=== PATIENT | male | born 1935 | race Caucasian/White ===

== ENCOUNTER 2018-02-01 09:05 | Inpatient (IN) | payer MEDICARE, OTHER ==
[2018-02-01] MEDS ORDERED: methylPREDNISolone Sodium Succinate 125 MG/2 ML SDV IVPUSH ONE (10:06)
[2018-02-01] MEDS ORDERED: Sodium Chloride 0.9% 1,000 ML IV ONE (10:06)
[2018-02-01] MEDS ORDERED: Albuterol/Ipratropium 3.0-0.5 MG/3 ML Neb Soln NEB ONE (10:06)
[2018-02-01] MEDS ORDERED: Diltiazem 25 MG/5 ML SDV IVPUSH ONE (10:07)
[2018-02-01] MEDS: Sodium Chloride 0.9% 10 ML Syringe FLUSH PRN ×2 (10:12→22:06)
[2018-02-01 10:25] LABS: CHLORIDE,CL 104 mmol/L (101-111); SODIUM,NA 137 mmol/L (135-145)
[2018-02-01] MEDS ORDERED: Levofloxacin/Dextrose 5%-Water 750 MG in Premix Bag 1 BAG IV ONE (11:48)
[2018-02-01] MEDS ORDERED: Albuterol 0.083% 2.5 MG/3 ML Neb Soln NEB PRN (13:32)
[2018-02-01] MEDS ORDERED: Acetaminophen 325 MG Tab PO PRN (13:35)
[2018-02-01] MEDS ORDERED: oxyCODONE 5 MG Tab PO PRN (13:35)
[2018-02-01] MEDS ORDERED: Docusate Sodium 100 MG Cap PO PRN (13:35)
[2018-02-01] MEDS ORDERED: Zolpidem 5 MG Tab PO PRN (13:35)
[2018-02-01] MEDS ORDERED: Ondansetron 4 MG Tab.DIS PO PRN (13:35)
--- NOTE | 2018-02-01 14:21 | PCM.HP ---
H&P History of Present Illness - General Date of Service: 02/01/18 Admit Problem/Dx: Admission Diagnosis/Problem Admission Diagnosis/Problem Pneumonia Source of Information: Patient, Provider - History of Present Illness Initial Comments - Free Text/Narative: The patient is an 82-year-old gentleman with a history of hypertension, diabetes , COPD. He has a history of hypothyroidism and recently TSH level was low. The patient's was recently hospitalized with pneumonia. He came into the emergency room with complains of about 1 week of subjective fever, episodes of confusion, change in voice. He also noticed increasing shortness of breath and wheezing. He reports no chest pain, no abdominal pain. When he arrived to the emergency room he was noted to have rapid atrial fibrillation. This returned to normal sinus rhythm on its own within minutes. - Related Data Allergies/Adverse Reactions: Allergies Allergy/AdvReac Type Severity Reaction Status Date / Time No Known Allergies Allergy Verified 02/01/18 11:54 Past Medical History Cardiovascular History: Reports: Hypertension Respiratory History: Reports: SOB Psychiatric History: Reports: None Endocrine/Metabolic History: Reports: Diabetes, Type II, Hypothyroidism Hematologic History: Reports: B12 Deficiency - Infectious Disease History Infectious Disease History: Reports: Mumps - Past Surgical History Head Surgeries/Procedures: Reports: None HEENT Surgical History: Reports: None Respiratory Surgical History: Reports: None GI Surgical History: Reports: Hernia Repair/Other Social & Family History - Tobacco Use Smoking Status *Q: Former Smoker Used Tobacco, but Quit: Yes Month/Year Tobacco Last Used: 1964 - Caffeine Use Caffeine Use: Reports: Coffee, Soda, Tea - Recreational Drug Use Recreational Drug Use: No H&P Review of Systems - Review of Systems: Review Of Systems: See Below General: Reports: Fever (Subjective), Weakness Pulmonary: Reports: Shortness of Breath, Wheezing Cardiovascular: Denies: Chest Pain, Palpitations, Lightheadedness Gastrointestinal: Denies: Abdominal Pain Genitourinary: Denies: Dysuria Neurological: Reports: Confusion Exam - Exam Exam: See Below - Vital Signs Vital Signs: Last Vital Signs Temp 36.8 C 02/01/18 12:47 Pulse 78 02/01/18 12:47 Resp 17 02/01/18 12:47 BP 119/62 02/01/18 12:47 Pulse Ox 94 L 02/01/18 12:47 Weight: 82.826 kg - Exam Quality Assessment: Supplemental Oxygen General: Alert, Oriented Neck: Supple Lungs: Normal Respiratory Effort, Rhonchi, Wheezing Cardiovascular: Regular Rate, Regular Rhythm GI/Abdominal Exam: Normal Bowel Sounds, Soft, Non-Tender Extremities: No Pedal Edema - Patient Data Lab Results Last 24 hrs: Laboratory Results - last 24 hr 02/01/18 02/01/18 02/01/18 Range/Units 09:53 09:53 09:53 WBC 9.8 (5.0-10.0) 10^3/uL RBC 4.16 L (4.6-6.2) 10^6/uL Hgb 12.5 L (14.0-18.0) g/dL Hct 39.0 L (40.0-54.0) % MCV 93.8 (80-100) fL MCH 30.0 (27.0-34.0) pg MCHC 32.1 L (33.0-35.0) g/dL Plt Count 169 (150-450) 10^3/uL Neut % (Auto) 71.8 (42.2-75.2) % Lymph % (Auto) 13.1 L (20.5-50.1) % [place] % (Auto) 11.6 H (2-8) % Eos % (Auto) 3.2 H (1.0-3.0) % Baso % (Auto) 0.3 (0.0-1.0) % PT 9.4 (9.0-12.0) SEC INR 0.9 (0.9-1.2) APTT 28.6 (22.0-34.0) SEC Sodium 137 (135-145) mmol/L Potassium 3.7 (3.6-5.0) mmol/L Chloride 104 (101-111) mmol/L Carbon Dioxide 24.0 (21.0-31.0) mmol/L Anion Gap 12.7 BUN 13 (7-18) mg/dL Creatinine 1.0 (0.6-1.3) mg/dL Est Cr Clr Drug Dosing 59.82 mL/min Estimated GFR (MDRD) > 60 BUN/Creatinine Ratio 13.00 Glucose 141 H (74-105) mg/dL POC Glucose (83-110) mg/dl Lactic Acid (0.5-2.2) mmol/L Calcium 9.2 (8.4-10.2) mg/dl Magnesium 1.7 L (1.8-2.5) mg/dL Total Bilirubin 0.9 (0.2-1.0) mg/dL AST 17 (10-42) IU/L ALT 12 (10-60) IU/L Alkaline Phosphatase 97 (42-121) IU/L Troponin I 0.02 (0.00-0.02) ng/ml B-Natriuretic Peptide 38 (0-100) pg/ml Total Protein 7.3 (6.7-8.2) g/dl Albumin 4.0 (3.2-5.5) g/dl Globulin 3.3 Albumin/Globulin Ratio 1.21 TSH, Ultra Sensitive (0.45-5.33) uIu/mL Urine Color (YELLOW) Urine Appearance (CLEAR) Urine pH (5.0-9.0) Ur Specific [place] (1.005-1.030) Urine Protein (NEGATIVE) Urine Glucose (UA) (NEGATIVE) Urine Ketones (NEGATIVE) Urine Occult Blood (NEGATIVE) Urine Nitrite (NEGATIVE) Urine Bilirubin (NEGATIVE) Urine Urobilinogen (0.2-1.0) mg/dL Ur Leukocyte Esterase (NEGATIVE) Urine RBC /HPF Urine WBC (0-5/HPF) /HPF Ur Epithelial Cells /HPF Urine Bacteria (0-FEW/HPF) /HPF Urine Mucus /LPF 02/01/18 02/01/18 02/01/18 Range/Units 09:53 09:53 10:04 WBC (5.0-10.0) 10^3/uL RBC (4.6-6.2) 10^6/uL Hgb (14.0-18.0) g/dL Hct (40.0-54.0) % MCV (80-100) fL MCH (27.0-34.0) pg MCHC (33.0-35.0) g/dL Plt Count (150-450) 10^3/uL Neut % (Auto) (42.2-75.2) % Lymph % (Auto) (20.5-50.1) % [place] % (Auto) (2-8) % Eos % (Auto) (1.0-3.0) % Baso % (Auto) (0.0-1.0) % PT (9.0-12.0) SEC INR (0.9-1.2) APTT (22.0-34.0) SEC Sodium (135-145) mmol/L Potassium (3.6-5.0) mmol/L Chloride (101-111) mmol/L Carbon Dioxide (21.0-31.0) mmol/L Anion Gap BUN (7-18) mg/dL Creatinine (0.6-1.3) mg/dL Est Cr Clr Drug Dosing mL/min Estimated GFR (MDRD) BUN/Creatinine Ratio Glucose (74-105) mg/dL POC Glucose 129 H (83-110) mg/dl Lactic Acid 1.1 (0.5-2.2) mmol/L Calcium (8.4-10.2) mg/dl Magnesium (1.8-2.5) mg/dL Total Bilirubin (0.2-1.0) mg/dL AST (10-42) IU/L ALT (10-60) IU/L Alkaline Phosphatase (42-121) IU/L Troponin I (0.00-0.02) ng/ml B-Natriuretic Peptide (0-100) pg/ml Total Protein (6.7-8.2) g/dl Albumin (3.2-5.5) g/dl Globulin Albumin/Globulin Ratio TSH, Ultra Sensitive 0.12 L (0.45-5.33) uIu/mL Urine Color (YELLOW) Urine Appearance (CLEAR) Urine pH (5.0-9.0) Ur Specific [place] (1.005-1.030) Urine Protein (NEGATIVE) Urine Glucose (UA) (NEGATIVE) Urine Ketones (NEGATIVE) Urine Occult Blood (NEGATIVE) Urine Nitrite (NEGATIVE) Urine Bilirubin (NEGATIVE) Urine Urobilinogen (0.2-1.0) mg/dL Ur Leukocyte Esterase (NEGATIVE) Urine RBC /HPF Urine WBC (0-5/HPF) /HPF Ur Epithelial Cells /HPF Urine Bacteria (0-FEW/HPF) /HPF Urine Mucus /LPF 02/01/18 Range/Units 10:21 WBC (5.0-10.0) 10^3/uL RBC (4.6-6.2) 10^6/uL Hgb (14.0-18.0) g/dL Hct (40.0-54.0) % MCV (80-100) fL MCH (27.0-34.0) pg MCHC (33.0-35.0) g/dL Plt Count (150-450) 10^3/uL Neut % (Auto) (42.2-75.2) % Lymph % (Auto) (20.5-50.1) % [place] % (Auto) (2-8) % Eos % (Auto) (1.0-3.0) % Baso % (Auto) (0.0-1.0) % PT (9.0-12.0) SEC INR (0.9-1.2) APTT (22.0-34.0) SEC Sodium (135-145) mmol/L Potassium (3.6-5.0) mmol/L Chloride (101-111) mmol/L Carbon Dioxide (21.0-31.0) mmol/L Anion Gap BUN (7-18) mg/dL Creatinine (0.6-1.3) mg/dL Est Cr Clr Drug Dosing mL/min Estimated GFR (MDRD) BUN/Creatinine Ratio Glucose (74-105) mg/dL POC Glucose (83-110) mg/dl Lactic Acid (0.5-2.2) mmol/L Calcium (8.4-10.2) mg/dl Magnesium (1.8-2.5) mg/dL Total Bilirubin (0.2-1.0) mg/dL AST (10-42) IU/L ALT (10-60) IU/L Alkaline Phosphatase (42-121) IU/L Troponin I (0.00-0.02) ng/ml B-Natriuretic Peptide (0-100) pg/ml Total Protein (6.7-8.2) g/dl Albumin (3.2-5.5) g/dl Globulin Albumin/Globulin Ratio TSH, Ultra Sensitive (0.45-5.33) uIu/mL Urine Color Yellow (YELLOW) Urine Appearance Slightly cloudy (CLEAR) Urine pH 7.0 (5.0-9.0) Ur Specific [place] 1.015 (1.005-1.030) Urine Protein Negative (NEGATIVE) Urine Glucose (UA) Negative (NEGATIVE) Urine Ketones Negative (NEGATIVE) Urine Occult Blood Negative (NEGATIVE) Urine Nitrite Negative (NEGATIVE) Urine Bilirubin Negative (NEGATIVE) Urine Urobilinogen 1.0 (0.2-1.0) mg/dL Ur Leukocyte Esterase Negative (NEGATIVE) Urine RBC 0-5 /HPF Urine WBC 0-5 (0-5/HPF) /HPF Ur Epithelial Cells Rare /HPF Urine Bacteria Rare (0-FEW/HPF) /HPF Urine Mucus Rare /LPF Result Diagrams: 02/01/18 09:53 02/01/18 09:53 Carlos Results Last 24 hrs: Microbiology 02/01/18 09:58 Anaerobic Blood Culture - Final Blood - Venous - Lab Draw Imaging Impressions Last 24 hrs: ct chest FINDINGS: Lungs: There are mild interstitial changes in the lungs. There is bronchial wall thickening. There are small spotty areas tree-in-bud pattern infiltrate. There is pulmonary hyperexpansion. Pleural space: Unremarkable. No pneumothorax. No significant effusion. Heart: Unremarkable. No cardiomegaly. No significant pericardial effusion. Mediastinum: There is a moderate sized hiatal hernia. Bones/joints: Unremarkable. No acute fracture. No dislocation. Soft tissues: Unremarkable. Vasculature: Unremarkable. No thoracic aortic aneurysm. Lymph nodes: Unremarkable. No enlarged lymph nodes. Gallbladder and bile ducts: There are small stones or sludge in the gallbladder. No inflammatory changes to the gallbladder. Chest x-ray per my reading shows bilateral atelectasis/infiltrate. More pronounced on the left side - Problem List (1) Atrial fibrillation with rapid ventricular response SNOMED Code(s): 591935229930982 ICD Code: I48.91 - UNSPECIFIED ATRIAL FIBRILLATION Status: Acute Current Visit: Yes (2) COPD with acute exacerbation SNOMED Code(s): 637677680 ICD Code: J44.1 - CHRONIC OBSTRUCTIVE PULMONARY DISEASE W (ACUTE) EXACERBATION Status: Acute Current Visit: Yes (3) Pneumonia SNOMED Code(s): 919329405 ICD Code: J18.9 - PNEUMONIA, UNSPECIFIED ORGANISM Status: Acute Current Visit: Yes Problem List Initiated/Reviewed/Updated: Yes Orders Last 24hrs: Active Orders 24 hr Category Date Time Status Patient Status [ADT] Routine ADT 02/01/18 13:35 Active Blood Glucose Check, Bedside [RC] ONETIME Care 02/01/18 09:48 Active EKG 12 Lead [EKG Documentation Completion] [RC] STAT Care 02/01/18 09:34 Active EKG 12 Lead [EKG Documentation Completion] [RC] STAT Care 02/01/18 11:01 Active Glucose [Blood Glucose Check, Bedside] [RC] TIDAC Care 02/01/18 13:59 Active Oxygen Therapy [RC] PRN Care 02/01/18 13:35 Active Peripheral IV Care [RC] . DIRECTED Care 02/01/18 09:36 Active RT Aerosol Therapy [RC] ASDIRECTED Care 02/01/18 10:07 Active RT Aerosol Therapy [RC] ASDIRECTED Care 02/01/18 13:32 Active Telemetry Monitoring [Cardiac Monitoring] [RC] . Care 02/01/18 13:33 Active DIRECTED Up With Assistance [RC] ASDIRECTED Care 02/01/18 13:35 Active VTE/DVT Education [RC] PER UNIT ROUTINE Care 02/01/18 13:35 Active Vital Signs [RC] Q4H Care 02/01/18 13:35 Active Regular Diet [DIET] Diet 02/01/18 Dinner Active BASIC METABOLIC PANEL,BMP [CHEM] AM Lab 02/02/18 05:15 Ordered CBC WITH AUTO DIFF [HEME] AM Lab 02/02/18 05:15 Ordered CULTURE BLOOD [BC] Stat Lab 02/01/18 09:53 Received CULTURE BLOOD [BC] Stat Lab 02/01/18 09:58 Results INFLUENZA A+B AG SCREEN [RM] Routine Lab 02/01/18 13:30 Ordered UA W/MICROSCOPIC [URIN] Stat Lab 02/01/18 10:21 Ordered Acetaminophen [Tylenol] Med 02/01/18 13:35 Active 650 mg PO Q4H PRN Albuterol [Proventil Neb Soln] Med 02/01/18 13:32 Active 2.5 mg NEB Q4HRRT PRN Albuterol/Ipratropium [DuoNeb 3.0-0.5 MG/3 ML] Med 02/01/18 15:00 Active 3 ml NEB Q8HRRT Aspirin Med 02/02/18 08:00 Active 81 mg PO WITHBREAKFAST Budesonide [Pulmicort] Med 02/01/18 18:00 Active 0.5 mg NEB BIDRT Docusate Sodium [Colace] Med 02/01/18 13:35 Active 100 mg PO BID PRN Heparin Sodium Med 02/01/18 14:00 Active 5,000 units SUBCUT Q8HR Hydrochlorothiazide Med 02/02/18 09:00 Active 12.5 mg PO DAILY Insulin Aspart [NovoLOG] Med 02/01/18 17:00 Active See Protocol SUBCUT TIDAC Levofloxacin/Dextrose 5%-Water [Levaquin in D5W 750 MG/ Med 02/02/18 11:00 Active 150 ML] 750 mg Premix Bag 1 bag IV Q24H Levothyroxine [Synthroid] Med 02/02/18 06:00 Active 50 mcg PO ACBREAKFAST Ondansetron [Zofran ODT] Med 02/01/18 13:35 Active 4 mg PO Q6H PRN Pantoprazole [ProTONIX] Med 02/02/18 06:00 Ordered 40 mg PO ACBREAKFAST Sodium Chloride 0.9% [Saline Flush] Med 02/01/18 09:35 Active 10 ml FLUSH ASDIRECTED PRN Valsartan [Diovan] Med 02/02/18 09:00 Ordered 80 mg PO DAILY Zolpidem [Ambien] Med 02/01/18 13:35 Active 5 mg PO BEDTIME PRN methylPREDNISolone Sod Succ [Solu-MEDROL] Med 02/01/18 18:00 Active 40 mg IVPUSH Q8H oxyCODONE Med 02/01/18 13:35 Active 5 mg PO Q4H PRN Antiembolic Hose [OM.PC] Per Unit Routine Oth 02/01/18 13:36 Ordered Blood Culture x2 Reflex Set [OM.PC] Stat Oth 02/01/18 09:35 Ordered Peripheral IV Insertion Adult [OM.PC] Stat Oth 02/01/18 09:35 Ordered Resuscitation Status Routine Resus Stat 02/01/18 13:35 Ordered Medication Orders Acetaminophen (Tylenol) 650 mg PO Q4H PRN PRN Reason: Pain (Mild 1-3)/fever Albuterol (Proventil Neb Soln) 2.5 mg NEB Q4HRRT PRN PRN Reason: sob Albuterol/Ipratropium (Duoneb 3.0-0.5 Mg/3 Ml) 3 ml NEB Q8HRRT LAURIE Aspirin (Aspirin) 81 mg PO WITHBREAKFAST LAURIE Budesonide (Pulmicort) 0.5 mg NEB BIDRT LAURIE Docusate Sodium (Colace) 100 mg PO BID PRN PRN Reason: Constipation Heparin Sodium (Porcine) (Heparin Sodium) 5,000 units SUBCUT Q8HR [facility] Hydrochlorothiazide (Hydrochlorothiazide) 12.5 mg PO DAILY [facility] Levofloxacin/Dextrose 750 mg/ (Premix) 150 mls @ 100 mls/hr IV Q24H [facility] Insulin Aspart (Novolog) 0 unit SUBCUT TIDAC LAURIE; Protocol Levothyroxine Sodium (Synthroid) 50 mcg PO ACBREAKFAST LAURIE Methylprednisolone Sodium Succinate (Solu-Medrol) 40 mg IVPUSH Q8H LAURIE Ondansetron HCl (Zofran Odt) 4 mg PO Q6H PRN PRN Reason: nausea, able to take PO Oxycodone HCl (Oxycodone) 5 mg PO Q4H PRN PRN Reason: Pain (moderate 4-6) Pantoprazole Sodium (Protonix) 40 mg PO ACBREAKFAST LAURIE Sodium Chloride (Saline Flush) 10 ml FLUSH ASDIRECTED PRN PRN Reason: Keep Vein Open Last Admin: 02/01/18 10:12 Dose: 10 ml Valsartan (Diovan) 80 mg PO DAILY [facility] Zolpidem Tartrate (Ambien) 5 mg PO BEDTIME PRN PRN Reason: Sleep Assessment/Plan Comment:: The patient is an 82-year-old gentleman with a history of hypothyroidism recently low TSH. History of COPD, diabetes, hypertension. Presented with sick contact, change in voice, increasing shortness of breath with wheezing Noted to have rapid atrial fibrillation that converted back to sinus rhythm quickly in the emergency room without intervention. #1 rapid atrial fibrillation Sinus rhythm We'll monitor on telemetry Decrease the Synthroid dose For now hold off on anticoagulation Monitor further #2 acute bronchitis, possible pneumonia We will obtain sputum culture, blood culture Started treatment empirically with levofloxacin. He reported itching at the site. Change to azithromycin, ceftriaxone. #3 acute COPD exacerbation Treat with IV Solu-Medrol Treat with Pulmicort, DuoNeb scheduled, albuterol when necessary #4 diabetes Hold metformin, We'll follow blood sugars and use supplemental insulin and hypoglycemia protocol as needed #5 hypertension Treat with hydrochlorothiazide, Diovan #6 DVT prophylaxis will be with subcutaneous heparin
[2018-02-01] MEDS: Heparin Sodium 5,000 Units/ML Vial SUBCUT SCH ×2 (15:13→22:04)
[2018-02-01] MEDS: Azithromycin 500 MG in Sodium Chloride 0.9% 250 ML IV SCH (15:59)
[2018-02-01] MEDS: Albuterol/Ipratropium 3.0-0.5 MG/3 ML Neb Soln NEB SCH ×2 (16:58→23:19)
[2018-02-01] MEDS: Budesonide 0.5 MG/2 ML Neb Susp NEB SCH (17:00)
[2018-02-01] MEDS: Oseltamivir 30 MG Cap PO SCH (17:31)
[2018-02-01] MEDS: methylPREDNISolone Sodium Succinate 40 MG/1 ML SDV IVPUSH SCH (17:31)
[2018-02-01] MEDS: Insulin Aspart 100 Units/ML 3 ML Pen SUBCUT SCH (17:34)
[2018-02-02] MEDS: Sodium Chloride 0.9% 10 ML Syringe FLUSH PRN ×2 (01:32→01:39)
[2018-02-02] MEDS: methylPREDNISolone Sodium Succinate 40 MG/1 ML SDV IVPUSH SCH ×2 (01:33→10:04)
[2018-02-02] MEDS: Pantoprazole 40 MG Tab.CR PO SCH (05:50)
[2018-02-02] MEDS: Levothyroxine 50 MCG Tab PO SCH (05:51)
[2018-02-02] MEDS: Heparin Sodium 5,000 Units/ML Vial SUBCUT SCH ×2 (05:52→14:51)
[2018-02-02 06:41] LABS: CHLORIDE,CL 102 mmol/L (101-111); SODIUM,NA 134 mmol/L (135-145)
[2018-02-02] MEDS: Albuterol/Ipratropium 3.0-0.5 MG/3 ML Neb Soln NEB SCH (07:29)
[2018-02-02] MEDS: Budesonide 0.5 MG/2 ML Neb Susp NEB SCH (07:29)
[2018-02-02] MEDS: Oseltamivir 30 MG Cap PO SCH (08:49)
[2018-02-02] MEDS: Hydrochlorothiazide 25 MG Tab PO SCH (08:50)
[2018-02-02] MEDS: Aspirin 81 MG Tab.Chew PO SCH (08:50)
[2018-02-02] MEDS: Insulin Aspart 100 Units/ML 3 ML Pen SUBCUT SCH ×2 (08:50→12:11)
[2018-02-02] MEDS ORDERED: Potassium Chloride 10 MEQ Tab.ER PO ONE (10:11)
--- NOTE | 2018-02-02 10:16 | PCM.PN ---
- General Info Date of Service: 02/02/18 Admission Dx/Problem (Free Text): Admission Diagnosis/Problem Admission Diagnosis/Problem Pneumonia Subjective Update: The patient tested positive for influenza. Has been in isolation. He feels his breathing has improved. No associated chest pain, abdominal pain. Still has cough. No fever. - Review of Systems General: Denies: Fever, Weakness Pulmonary: Reports: Shortness of Breath (Improved) Cardiovascular: Denies: Chest Pain Gastrointestinal: Denies: Abdominal Pain Neurological: Denies: Confusion - Patient Data Vitals - Most Recent: Last Vital Signs Temp 36.8 C 02/02/18 08:31 Pulse 80 02/02/18 08:31 Resp 20 02/02/18 08:31 BP 109/62 02/02/18 08:50 Pulse Ox 92 L 02/02/18 08:31 Weight - Most Recent: 82.826 kg I&O - Last 24 Hours: Intake & Output 02/01/18 02/02/18 02/02/18 22:59 06:59 14:59 Intake Total 500 800 Output Total 850 700 400 Balance -350 100 -400 Lab Results Last 24 Hours: Laboratory Results - last 24 hr 02/01/18 02/01/18 02/01/18 Range/Units 09:53 09:53 09:53 WBC (5.0-10.0) 10^3/uL RBC (4.6-6.2) 10^6/uL Hgb (14.0-18.0) g/dL Hct (40.0-54.0) % MCV (80-100) fL MCH (27.0-34.0) pg MCHC (33.0-35.0) g/dL Plt Count (150-450) 10^3/uL Neut % (Auto) (42.2-75.2) % Lymph % (Auto) (20.5-50.1) % [place] % (Auto) (2-8) % Eos % (Auto) (1.0-3.0) % Baso % (Auto) (0.0-1.0) % PT 9.4 (9.0-12.0) SEC INR 0.9 (0.9-1.2) APTT 28.6 (22.0-34.0) SEC Sodium 137 (135-145) mmol/L Potassium 3.7 (3.6-5.0) mmol/L Chloride 104 (101-111) mmol/L Carbon Dioxide 24.0 (21.0-31.0) mmol/L Anion Gap 12.7 BUN 13 (7-18) mg/dL Creatinine 1.0 (0.6-1.3) mg/dL Est Cr Clr Drug Dosing 59.82 mL/min Estimated GFR (MDRD) > 60 BUN/Creatinine Ratio 13.00 Glucose 141 H (74-105) mg/dL POC Glucose (83-110) mg/dl Lactic Acid 1.1 (0.5-2.2) mmol/L Calcium 9.2 (8.4-10.2) mg/dl Magnesium 1.7 L (1.8-2.5) mg/dL Total Bilirubin 0.9 (0.2-1.0) mg/dL AST 17 (10-42) IU/L ALT 12 (10-60) IU/L Alkaline Phosphatase 97 (42-121) IU/L Troponin I 0.02 (0.00-0.02) ng/ml B-Natriuretic Peptide 38 (0-100) pg/ml Total Protein 7.3 (6.7-8.2) g/dl Albumin 4.0 (3.2-5.5) g/dl Globulin 3.3 Albumin/Globulin Ratio 1.21 TSH, Ultra Sensitive (0.45-5.33) uIu/mL Urine Color (YELLOW) Urine Appearance (CLEAR) Urine pH (5.0-9.0) Ur Specific [place] (1.005-1.030) Urine Protein (NEGATIVE) Urine Glucose (UA) (NEGATIVE) Urine Ketones (NEGATIVE) Urine Occult Blood (NEGATIVE) Urine Nitrite (NEGATIVE) Urine Bilirubin (NEGATIVE) Urine Urobilinogen (0.2-1.0) mg/dL Ur Leukocyte Esterase (NEGATIVE) Urine RBC /HPF Urine WBC (0-5/HPF) /HPF Ur Epithelial Cells /HPF Urine Bacteria (0-FEW/HPF) /HPF Urine Mucus /LPF 02/01/18 02/01/18 02/01/18 Range/Units 09:53 10:04 10:21 WBC (5.0-10.0) 10^3/uL RBC (4.6-6.2) 10^6/uL Hgb (14.0-18.0) g/dL Hct (40.0-54.0) % MCV (80-100) fL MCH (27.0-34.0) pg MCHC (33.0-35.0) g/dL Plt Count (150-450) 10^3/uL Neut % (Auto) (42.2-75.2) % Lymph % (Auto) (20.5-50.1) % [place] % (Auto) (2-8) % Eos % (Auto) (1.0-3.0) % Baso % (Auto) (0.0-1.0) % PT (9.0-12.0) SEC INR (0.9-1.2) APTT (22.0-34.0) SEC Sodium (135-145) mmol/L Potassium (3.6-5.0) mmol/L Chloride (101-111) mmol/L Carbon Dioxide (21.0-31.0) mmol/L Anion Gap BUN (7-18) mg/dL Creatinine (0.6-1.3) mg/dL Est Cr Clr Drug Dosing mL/min Estimated GFR (MDRD) BUN/Creatinine Ratio Glucose (74-105) mg/dL POC Glucose 129 H (83-110) mg/dl Lactic Acid (0.5-2.2) mmol/L Calcium (8.4-10.2) mg/dl Magnesium (1.8-2.5) mg/dL Total Bilirubin (0.2-1.0) mg/dL AST (10-42) IU/L ALT (10-60) IU/L Alkaline Phosphatase (42-121) IU/L Troponin I (0.00-0.02) ng/ml B-Natriuretic Peptide (0-100) pg/ml Total Protein (6.7-8.2) g/dl Albumin (3.2-5.5) g/dl Globulin Albumin/Globulin Ratio TSH, Ultra Sensitive 0.12 L (0.45-5.33) uIu/mL Urine Color Yellow (YELLOW) Urine Appearance Slightly cloudy (CLEAR) Urine pH 7.0 (5.0-9.0) Ur Specific [place] 1.015 (1.005-1.030) Urine Protein Negative (NEGATIVE) Urine Glucose (UA) Negative (NEGATIVE) Urine Ketones Negative (NEGATIVE) Urine Occult Blood Negative (NEGATIVE) Urine Nitrite Negative (NEGATIVE) Urine Bilirubin Negative (NEGATIVE) Urine Urobilinogen 1.0 (0.2-1.0) mg/dL Ur Leukocyte Esterase Negative (NEGATIVE) Urine RBC 0-5 /HPF Urine WBC 0-5 (0-5/HPF) /HPF Ur Epithelial Cells Rare /HPF Urine Bacteria Rare (0-FEW/HPF) /HPF Urine Mucus Rare /LPF 02/01/18 02/02/18 02/02/18 Range/Units 16:58 06:00 06:00 WBC 7.3 (5.0-10.0) 10^3/uL RBC 3.71 L (4.6-6.2) 10^6/uL Hgb 11.2 L (14.0-18.0) g/dL Hct 34.9 L (40.0-54.0) % MCV 94.1 (80-100) fL MCH 30.2 (27.0-34.0) pg MCHC 32.1 L (33.0-35.0) g/dL Plt Count 169 (150-450) 10^3/uL Neut % (Auto) 84.6 H (42.2-75.2) % Lymph % (Auto) 11.8 L (20.5-50.1) % [place] % (Auto) 3.6 (2-8) % Eos % (Auto) 0.0 L (1.0-3.0) % Baso % (Auto) 0.0 (0.0-1.0) % PT (9.0-12.0) SEC INR (0.9-1.2) APTT (22.0-34.0) SEC Sodium 134 L (135-145) mmol/L Potassium 3.5 L (3.6-5.0) mmol/L Chloride 102 (101-111) mmol/L Carbon Dioxide 23.0 (21.0-31.0) mmol/L Anion Gap 12.5 BUN 18 (7-18) mg/dL Creatinine 1.0 (0.6-1.3) mg/dL Est Cr Clr Drug Dosing 59.82 mL/min Estimated GFR (MDRD) > 60 BUN/Creatinine Ratio Glucose 234 H (74-105) mg/dL POC Glucose 281 H (83-110) mg/dl Lactic Acid (0.5-2.2) mmol/L Calcium 9.0 (8.4-10.2) mg/dl Magnesium (1.8-2.5) mg/dL Total Bilirubin (0.2-1.0) mg/dL AST (10-42) IU/L ALT (10-60) IU/L Alkaline Phosphatase (42-121) IU/L Troponin I (0.00-0.02) ng/ml B-Natriuretic Peptide (0-100) pg/ml Total Protein (6.7-8.2) g/dl Albumin (3.2-5.5) g/dl Globulin Albumin/Globulin Ratio TSH, Ultra Sensitive (0.45-5.33) uIu/mL Urine Color (YELLOW) Urine Appearance (CLEAR) Urine pH (5.0-9.0) Ur Specific [place] (1.005-1.030) Urine Protein (NEGATIVE) Urine Glucose (UA) (NEGATIVE) Urine Ketones (NEGATIVE) Urine Occult Blood (NEGATIVE) Urine Nitrite (NEGATIVE) Urine Bilirubin (NEGATIVE) Urine Urobilinogen (0.2-1.0) mg/dL Ur Leukocyte Esterase (NEGATIVE) Urine RBC /HPF Urine WBC (0-5/HPF) /HPF Ur Epithelial Cells /HPF Urine Bacteria (0-FEW/HPF) /HPF Urine Mucus /LPF Carlos Results Last 24 Hours: Microbiology 02/01/18 09:58 Aerobic Blood Culture - Preliminary Blood - Venous - Lab Draw NO GROWTH AFTER 1 DAY Anaerobic Blood Culture - Final 02/01/18 09:53 Aerobic Blood Culture - Preliminary Blood - Venous NO GROWTH AFTER 1 DAY Anaerobic Blood Culture - Preliminary NO GROWTH AFTER 1 DAY 02/01/18 17:15 Gram Stain - Final Sputum - Expectorated 02/01/18 15:17 Influenza Type A Antigen Screen - Final Nasopharyngeal Swab NEGATIVE INFLUENZA A VIRUS AG Influenza Type B Antigen Screen - Final Positive Influenza B Ag Med Orders - Current: Current Medications Acetaminophen (Tylenol) 650 mg PO Q4H PRN PRN Reason: Pain (Mild 1-3)/fever Last Admin: 02/01/18 22:06 Dose: 650 mg Albuterol (Proventil Neb Soln) 2.5 mg NEB Q4HRRT PRN PRN Reason: sob Albuterol/Ipratropium (Duoneb 3.0-0.5 Mg/3 Ml) 3 ml NEB Q8HRRT REPLACED BY [facility] Last Admin: 02/02/18 07:29 Dose: 3 ml Aspirin (Aspirin) 81 mg PO WITHBREAKFAST REPLACED BY [facility] Last Admin: 02/02/18 08:50 Dose: 81 mg Budesonide (Pulmicort) 0.5 mg NEB BIDRT REPLACED BY [facility] Last Admin: 02/02/18 07:29 Dose: 0.5 mg Docusate Sodium (Colace) 100 mg PO BID PRN PRN Reason: Constipation Heparin Sodium (Porcine) (Heparin Sodium) 5,000 units SUBCUT Q8HR REPLACED BY [facility] Last Admin: 02/02/18 05:52 Dose: 5,000 units Hydrochlorothiazide (Hydrochlorothiazide) 12.5 mg PO DAILY REPLACED BY [facility] Last Admin: 02/02/18 08:50 Dose: 12.5 mg Azithromycin 500 mg/ Sodium (Chloride) 250 mls @ 250 mls/hr IV Q24H REPLACED BY [facility] Last Admin: 02/01/18 15:59 Dose: 250 mls/hr Ceftriaxone Sodium 1,000 mg/ (Sodium Chloride) 100 mls @ 200 mls/hr IV Q24H REPLACED BY [facility] Last Admin: 02/01/18 15:09 Dose: 200 mls/hr Insulin Aspart (Novolog) 0 unit SUBCUT TIDAC REPLACED BY [facility]; Protocol Last Admin: 02/02/18 08:50 Dose: 4 unit Levothyroxine Sodium (Synthroid) 50 mcg PO ACBREAKFAST REPLACED BY [facility] Last Admin: 02/02/18 05:51 Dose: 50 mcg Methylprednisolone Sodium Succinate (Solu-Medrol) 40 mg IVPUSH Q8H REPLACED BY [facility] Last Admin: 02/02/18 10:04 Dose: 40 mg Ondansetron HCl (Zofran Odt) 4 mg PO Q6H PRN PRN Reason: nausea, able to take PO Oseltamivir Phosphate (Tamiflu) 30 mg PO DAILY REPLACED BY [facility] Last Admin: 02/02/18 08:49 Dose: 30 mg Oxycodone HCl (Oxycodone) 5 mg PO Q4H PRN PRN Reason: Pain (moderate 4-6) Pantoprazole Sodium (Protonix) 40 mg PO ACBREAKFAST REPLACED BY [facility] Last Admin: 02/02/18 05:50 Dose: 40 mg Potassium Chloride (Klor-Con 10) 40 meq PO ONETIME ONE Stop: 02/02/18 10:12 Sodium Chloride (Saline Flush) 10 ml FLUSH ASDIRECTED PRN PRN Reason: Keep Vein Open Last Admin: 02/02/18 01:39 Dose: 10 ml Valsartan (Diovan) 80 mg PO DAILY [facility]URIE Last Admin: 02/02/18 08:50 Dose: 80 mg Zolpidem Tartrate (Ambien) 5 mg PO BEDTIME PRN PRN Reason: Sleep Last Admin: 02/01/18 22:05 Dose: 5 mg Discontinued Medications Albuterol/Ipratropium (Duoneb 3.0-0.5 Mg/3 Ml) 3 ml NEB ONETIME ONE Stop: 02/01/18 10:07 Last Admin: 02/01/18 10:16 Dose: 3 ml Diltiazem HCl (Diltiazem) 10 mg IVPUSH ONETIME ONE Stop: 02/01/18 10:08 Last Admin: 02/01/18 12:49 Dose: Not Given Sodium Chloride (Normal Saline) 1,000 mls @ 999 mls/hr IV .BOLUS ONE Stop: 02/01/18 11:06 Last Admin: 02/01/18 10:13 Dose: 999 mls/hr Levofloxacin/Dextrose 750 mg/ (Premix) 150 mls @ 100 mls/hr IV ONETIME ONE Stop: 02/01/18 13:17 Last Admin: 02/01/18 12:35 Dose: 100 mls/hr Levofloxacin/Dextrose 750 mg/ (Premix) 150 mls @ 100 mls/hr IV Q24H REPLACED BY [facility] Methylprednisolone Sodium Succinate (Solu-Medrol) 125 mg IVPUSH ONETIME ONE Stop: 02/01/18 10:07 Last Admin: 02/01/18 10:10 Dose: 125 mg - Exam General: Alert, Oriented Neck: Supple Lungs: Rhonchi (Bilateral basilar) Cardiovascular: Regular Rate, Regular Rhythm GI/Abdominal Exam: Normal Bowel Sounds, Soft, Non-Tender Extremities: No Pedal Edema Skin: Warm Neurological: No New Focal Deficit Psy/Mental Status: Alert, Normal Affect, Normal Mood - Problem List & Annotations (1) Atrial fibrillation with rapid ventricular response SNOMED Code(s): 505990186587522 Code(s): I48.91 - UNSPECIFIED ATRIAL FIBRILLATION Status: Acute Current Visit: Yes (2) COPD with acute exacerbation SNOMED Code(s): 668975096 Code(s): J44.1 - CHRONIC OBSTRUCTIVE PULMONARY DISEASE W (ACUTE) EXACERBATION Status: Acute Current Visit: Yes (3) Pneumonia SNOMED Code(s): 663414100 Code(s): J18.9 - PNEUMONIA, UNSPECIFIED ORGANISM Status: Acute Current Visit: Yes - Problem List Review Problem List Initiated/Reviewed/Updated: Yes - My Orders Last 24 Hours: My Active Orders 02/01/18 13:32 RT Aerosol Therapy [RC] ASDIRECTED Albuterol [Proventil Neb Soln] 2.5 mg NEB Q4HRRT PRN 02/01/18 13:33 Telemetry Monitoring [Cardiac Monitoring] [RC] 08,02/01/18 13:35 Patient Status [ADT] Routine Oxygen Therapy [RC] PRN Up With Assistance [RC] ASDIRECTED VTE/DVT Education [RC] PER UNIT ROUTINE Vital Signs [RC] 07,11,15,19,23,03 Acetaminophen [Tylenol] 650 mg PO Q4H PRN Docusate Sodium [Colace] 100 mg PO BID PRN Ondansetron [Zofran ODT] 4 mg PO Q6H PRN Zolpidem [Ambien] 5 mg PO BEDTIME PRN oxyCODONE 5 mg PO Q4H PRN Resuscitation Status Routine 02/01/18 13:36 Antiembolic Hose [OM.PC] Per Unit Routine 02/01/18 13:59 Glucose [Blood Glucose Check, Bedside] [RC] 08,12,17 02/01/18 14:00 Heparin Sodium 5,000 units SUBCUT Q8HR 02/01/18 14:30 cefTRIAXone [Rocephin] 1,000 mg Sodium Chloride 0.9% [Normal Saline] 100 ml IV Q24H 02/01/18 15:00 Albuterol/Ipratropium [DuoNeb 3.0-0.5 MG/3 ML] 3 ml NEB Q8HRRT Azithromycin [Zithromax] 500 mg Sodium Chloride 0.9% [Normal Saline] 250 ml IV Q24H 02/01/18 15:17 INFLUENZA A+B AG SCREEN [RM] Routine 02/01/18 17:00 Insulin Aspart [NovoLOG] See Protocol SUBCUT TIDAC 02/01/18 17:15 CULTURE SPUTUM + SMEAR [RM] Routine Oseltamivir [Tamiflu] 30 mg PO DAILY 02/01/18 18:00 Budesonide [Pulmicort] 0.5 mg NEB BIDRT methylPREDNISolone Sod Succ [Solu-MEDROL] 40 mg IVPUSH Q8H 02/01/18 Dinner Regular Diet [DIET] 02/02/18 06:00 Levothyroxine [Synthroid] 50 mcg PO ACBREAKFAST Pantoprazole [ProTONIX] 40 mg PO ACBREAKFAST 02/02/18 08:00 Aspirin 81 mg PO WITHBREAKFAST 02/02/18 09:00 Hydrochlorothiazide 12.5 mg PO DAILY Valsartan [Diovan] 80 mg PO DAILY 02/02/18 10:11 Potassium Chloride [Klor-Con 10] 40 meq PO ONETIME ONE 02/03/18 05:15 BASIC METABOLIC PANEL,BMP [CHEM] AM CBC WITH AUTO DIFF [HEME] AM - Plan Plan:: The patient is an 82-year-old gentleman with a history of hypothyroidism recently low TSH. History of COPD, diabetes, hypertension. Presented with sick contact, change in voice, increasing shortness of breath with wheezing Noted to have rapid atrial fibrillation that converted back to sinus rhythm quickly in the emergency room without intervention. #1 rapid atrial fibrillation Remained in Sinus rhythm We'll monitor on telemetry Decreased the Synthroid dose For now hold off on anticoagulation Monitor further #2 acute bronchitis, possible pneumonia We will obtain sputum culture, blood culture Started treatment empirically with levofloxacin. He reported itching at the site. Changed to azithromycin, ceftriaxone. The patient tested positive for influenza Started on Tamiflu #3 acute COPD exacerbation Continue to Treat with IV Solu-Medrol Treat with Pulmicort, DuoNeb scheduled, albuterol when necessary #4 diabetes Hold metformin, We'll follow blood sugars and use supplemental insulin and hypoglycemia protocol as needed #5 hypertension Treat with hydrochlorothiazide, Diovan #6 DVT prophylaxis will be with subcutaneous heparin
[2018-02-02] MEDS ORDERED: Levofloxacin/Dextrose 5%-Water 750 MG in Premix Bag 1 BAG IV SCH (11:00)
[2018-02-03] MEDS: Azithromycin 500 MG in Sodium Chloride 0.9% 250 ML IV SCH (03:07)
[2018-02-03] MEDS: Albuterol/Ipratropium 3.0-0.5 MG/3 ML Neb Soln NEB SCH ×2 (03:07→07:35)
[2018-02-03] MEDS: Budesonide 0.5 MG/2 ML Neb Susp NEB SCH ×2 (03:07→07:35)
[2018-02-03] MEDS: Insulin Aspart 100 Units/ML 3 ML Pen SUBCUT SCH ×3 (03:07→11:47)
[2018-02-03] MEDS: methylPREDNISolone Sodium Succinate 40 MG/1 ML SDV IVPUSH SCH ×3 (03:07→10:16)
[2018-02-03] MEDS: Heparin Sodium 5,000 Units/ML Vial SUBCUT SCH ×2 (03:08→06:08)
[2018-02-03] MEDS: Levothyroxine 50 MCG Tab PO SCH (06:09)
[2018-02-03] MEDS: Pantoprazole 40 MG Tab.CR PO SCH (06:09)
[2018-02-03 07:05] LABS: CHLORIDE,CL 103 mmol/L (101-111); SODIUM,NA 134 mmol/L (135-145)
[2018-02-03] MEDS: Aspirin 81 MG Tab.Chew PO SCH (08:25)
[2018-02-03] MEDS: Oseltamivir 30 MG Cap PO SCH (08:25)
[2018-02-03] MEDS: Hydrochlorothiazide 25 MG Tab PO SCH (08:25)
--- NOTE | 2018-02-03 10:06 | PCM.DCSUM1 ---
Discharge Summary - Hospital Course Free Text/Narrative:: The patient is an 82-year-old gentleman with a history of hypothyroidism recently low TSH. History of COPD, diabetes, hypertension. Presented with sick contact, change in voice, increasing shortness of breath with wheezing Noted to have rapid atrial fibrillation that converted back to sinus rhythm quickly in the emergency room without intervention. #1 rapid atrial fibrillation Remained in Sinus rhythm we continued to monitor on telemetry - there was no recurrence Decreased the Synthroid dose since TSH was low For now hold off on anticoagulation #2 acute bronchitis, possible pneumonia We will obtain sputum culture, blood culture Started treatment empirically with levofloxacin. He reported itching at the site. Changed to azithromycin, ceftriaxone. We'll continue oral Augmentin after discharge The patient tested positive for influenza Started on Tamiflu #3 acute COPD exacerbation Treated with IV Solu-Medrol, will taper prednisone as outpatient Treated with Pulmicort, DuoNeb scheduled, albuterol when necessary #4 diabetes Resume metformin, #5 hypertension Treat with hydrochlorothiazide, Diovan - Discharge Data Discharge Date: 02/03/18 Discharge Disposition: Home, Self-Care 01 Condition: Fair - Discharge Diagnosis/Problem(s) (1) Atrial fibrillation with rapid ventricular response SNOMED Code(s): 871688778858865 ICD Code: I48.91 - UNSPECIFIED ATRIAL FIBRILLATION Status: Acute Current Visit: Yes (2) COPD with acute exacerbation SNOMED Code(s): 286215436 ICD Code: J44.1 - CHRONIC OBSTRUCTIVE PULMONARY DISEASE W (ACUTE) EXACERBATION Status: Acute Current Visit: Yes (3) Pneumonia SNOMED Code(s): 636451369 ICD Code: J18.9 - PNEUMONIA, UNSPECIFIED ORGANISM Status: Acute Current Visit: Yes - Patient Instructions Diet: Heart Healthy Diet Activity: As Tolerated - Discharge Plan Prescriptions/Med Rec: Amoxicillin/Potassium Clav [Augmentin 500-125 Tablet] 1 each PO TID #15 tablet Levothyroxine [Synthroid] 50 mcg PO ACBREAKFAST #30 tablet Oseltamivir [Tamiflu] 30 mg PO DAILY #3 cap Prednisone [IJD: Prednisone] 10 mg PO DAILY #30 tab Home Medications: Home Meds Aspirin [Halfprin] 81 mg PO DAILY 02/01/18 [History] Cyanocobalamin (Vitamin B-12) [Cyanocobalamin Injection] 1,000 mcg IJ .MONTHLY 02/01/18 [History] Omeprazole 20 mg PO DAILY 02/01/18 [History] Rosuvastatin Calcium [Crestor] 20 mg PO DAILY 02/01/18 [History] Valsartan/Hydrochlorothiazide [Valsartan-Hctz 80-12.5 mg Tab] 1 each PO DAILY [History] metFORMIN [Glucophage] 1,000 mg PO BIDMEALS 02/01/18 [History] Albuterol [Ventolin HFA] 1 puff INH Q6H PRN #1 02/03/18 [Rx] Albuterol/Ipratropium [DuoNeb 3.0-0.5 MG/3 ML] 1 dose INH Q6H PRN #0 02/03/18 [ Rx] Amoxicillin/Potassium Clav [Augmentin 500-125 Tablet] 1 each PO TID #15 tablet 02/03/18 [Rx] Budesonide [Pulmicort Flexhaler] 180 mcg IH BID #1 02/03/18 [Rx] Levothyroxine [Synthroid] 50 mcg PO ACBREAKFAST #30 tablet 02/03/18 [Rx] Oseltamivir [Tamiflu] 30 mg PO DAILY #3 cap 02/03/18 [Rx] Prednisone [IJD: Prednisone] 10 mg PO DAILY #30 tab 02/03/18 [Rx] Forms: ED Department Discharge Referrals: Trice Montoya MD [Primary Care Provider] - (in 2-3 days) - Discharge Summary/Plan Comment DC Time >30 min.: No - General Info Date of Service: 02/03/18 Admission Dx/Problem (Free Text: Admission Diagnosis/Problem Admission Diagnosis/Problem Pneumonia Subjective Update: He feels his breathing has improved. No associated chest pain, abdominal pain. No fever. Would like to get home today. - Review of Systems General: Denies: Fever Pulmonary: Denies: Shortness of Breath Cardiovascular: Denies: Chest Pain Gastrointestinal: Denies: Abdominal Pain - Patient Data Vitals - Most Recent: Last Vital Signs Temp 36.8 C 02/03/18 08:02 Pulse 64 02/03/18 08:02 Resp 20 02/03/18 08:02 BP 106/64 02/03/18 08:25 Pulse Ox 99 02/03/18 08:02 Weight - Most Recent: 82.826 kg I&O - Last 24 hours: Intake & Output 02/02/18 02/03/18 02/03/18 22:59 06:59 14:59 Intake Total 600 400 Output Total 1000 Balance -400 400 Lab Results - Last 24 hrs: Laboratory Results - last 24 hr 02/02/18 02/02/18 02/02/18 Range/Units 08:48 11:15 16:50 WBC (5.0-10.0) 10^3/uL RBC (4.6-6.2) 10^6/uL Hgb (14.0-18.0) g/dL Hct (40.0-54.0) % MCV (80-100) fL MCH (27.0-34.0) pg MCHC (33.0-35.0) g/dL Plt Count (150-450) 10^3/uL Neut % (Auto) (42.2-75.2) % Lymph % (Auto) (20.5-50.1) % [place] % (Auto) (2-8) % Eos % (Auto) (1.0-3.0) % Baso % (Auto) (0.0-1.0) % Add Manual Diff Neutrophils % (Manual) (42-75) % Lymphocytes % (Manual) (20-50) % Monocytes % (Manual) (2-8) % Platelet Estimate Poikilocytosis Sodium (135-145) mmol/L Potassium (3.6-5.0) mmol/L Chloride (101-111) mmol/L Carbon Dioxide (21.0-31.0) mmol/L Anion Gap BUN (7-18) mg/dL Creatinine (0.6-1.3) mg/dL Est Cr Clr Drug Dosing mL/min Estimated GFR (MDRD) Glucose (74-105) mg/dL POC Glucose 245 H 227 H 266 H (83-110) mg/dl Calcium (8.4-10.2) mg/dl 02/03/18 02/03/18 02/03/18 Range/Units 05:52 05:52 07:44 WBC 9.8 (5.0-10.0) 10^3/uL RBC 3.57 L (4.6-6.2) 10^6/uL Hgb 10.9 L (14.0-18.0) g/dL Hct 33.2 L (40.0-54.0) % MCV 93.0 (80-100) fL MCH 30.5 (27.0-34.0) pg MCHC 32.8 L (33.0-35.0) g/dL Plt Count 184 (150-450) 10^3/uL Neut % (Auto) 88.5 H (42.2-75.2) % Lymph % (Auto) 7.3 L (20.5-50.1) % [place] % (Auto) 4.2 (2-8) % Eos % (Auto) 0.0 L (1.0-3.0) % Baso % (Auto) 0.0 (0.0-1.0) % Add Manual Diff Yes Neutrophils % (Manual) 91 H (42-75) % Lymphocytes % (Manual) 6 L (20-50) % Monocytes % (Manual) 3 (2-8) % Platelet Estimate Adequate Poikilocytosis 1+ slight Sodium 134 L (135-145) mmol/L Potassium 4.0 (3.6-5.0) mmol/L Chloride 103 (101-111) mmol/L Carbon Dioxide 23.0 (21.0-31.0) mmol/L Anion Gap 12.0 BUN 25 H (7-18) mg/dL Creatinine 0.9 (0.6-1.3) mg/dL Est Cr Clr Drug Dosing 66.47 mL/min Estimated GFR (MDRD) > 60 Glucose 229 H (74-105) mg/dL POC Glucose 207 H (83-110) mg/dl Calcium 8.9 (8.4-10.2) mg/dl MONICA Results - Last 24 hrs: Microbiology 02/01/18 17:15 Gram Stain - Final Sputum - Expectorated Sputum Culture - Preliminary 02/01/18 09:58 Aerobic Blood Culture - Preliminary Blood - Venous - Lab Draw NO GROWTH AFTER 1 DAY Anaerobic Blood Culture - Final 02/01/18 09:53 Aerobic Blood Culture - Preliminary Blood - Venous NO GROWTH AFTER 1 DAY Anaerobic Blood Culture - Preliminary NO GROWTH AFTER 1 DAY Med Orders - Current: Current Medications Acetaminophen (Tylenol) 650 mg PO Q4H PRN PRN Reason: Pain (Mild 1-3)/fever Last Admin: 02/01/18 22:06 Dose: 650 mg Albuterol (Proventil Neb Soln) 2.5 mg NEB Q4HRRT PRN PRN Reason: sob Albuterol/Ipratropium (Duoneb 3.0-0.5 Mg/3 Ml) 3 ml NEB Q8HRRT [facility] Last Admin: 02/03/18 07:35 Dose: 3 ml Aspirin (Aspirin) 81 mg PO WITHBREAKFAST [facility] Last Admin: 02/03/18 08:25 Dose: 81 mg Budesonide (Pulmicort) 0.5 mg NEB BIDRT [facility] Last Admin: 02/03/18 07:35 Dose: 0.5 mg Docusate Sodium (Colace) 100 mg PO BID PRN PRN Reason: Constipation Heparin Sodium (Porcine) (Heparin Sodium) 5,000 units SUBCUT Q8HR [facility] Last Admin: 02/03/18 06:08 Dose: 5,000 units Hydrochlorothiazide (Hydrochlorothiazide) 12.5 mg PO DAILY [facility] Last Admin: 02/03/18 08:25 Dose: 12.5 mg Azithromycin 500 mg/ Sodium (Chloride) 250 mls @ 250 mls/hr IV Q24H [facility] Last Admin: 02/03/18 03:07 Dose: Not Given Ceftriaxone Sodium 1,000 mg/ (Sodium Chloride) 100 mls @ 200 mls/hr IV Q24H [facility] Last Admin: 02/02/18 14:50 Dose: 200 mls/hr Insulin Aspart (Novolog) 0 unit SUBCUT TIDAC [facility]; Protocol Last Admin: 02/03/18 08:25 Dose: 4 unit [facility]othy[facility]ine [facility] ([facility]) [facility] Last Admin: 02/03/18 06:09 Dose: 50 mcg Methylprednisolone Sodium Succinate (Solu-Medrol) 40 mg IVPUSH Q8H [facility] Last Admin: 02/03/18 03:08 Dose: Not Given Ondansetron HCl (Zofran Odt) 4 mg PO Q6H PRN PRN Reason: nausea, able to take PO Oseltamivir Phosphate (Tamiflu) 30 mg PO DAILY [facility] Last Admin: 02/03/18 08:25 Dose: 30 mg Oxycodone HCl (Oxycodone) 5 mg PO Q4H PRN PRN Reason: Pain (moderate 4-6) Pantoprazole Sodium (Protonix) 40 mg PO ACBREAKFAST [facility] Last Admin: 02/03/18 06:09 Dose: 40 mg Sodium Chloride (Saline Flush) 10 ml FLUSH ASDIRECTED PRN PRN Reason: Keep Vein Open Last Admin: 02/02/18 01:39 Dose: 10 ml Valsartan (Diovan) 80 mg PO DAILY [facility] Last Admin: 02/03/18 08:25 Dose: 80 mg Zolpidem Tartrate (Ambien) 5 mg PO BEDTIME PRN PRN Reason: Sleep Last Admin: 02/01/18 22:05 Dose: 5 mg Discontinued Medications Albuterol/Ipratropium (Duoneb 3.0-0.5 Mg/3 Ml) 3 ml NEB ONETIME ONE Stop: 02/01/18 10:07 Last Admin: 02/01/18 10:16 Dose: 3 ml Diltiazem HCl (Diltiazem) 10 mg IVPUSH ONETIME ONE Stop: 02/01/18 10:08 Last Admin: 02/01/18 12:49 Dose: Not Given Sodium Chloride (Normal Saline) 1,000 mls @ 999 mls/hr IV .BOLUS ONE Stop: 02/01/18 11:06 Last Admin: 02/01/18 10:13 Dose: 999 mls/hr Levofloxacin/Dextrose 750 mg/ (Premix) 150 mls @ 100 mls/hr IV ONETIME ONE Stop: 02/01/18 13:17 Last Admin: 02/01/18 12:35 Dose: 100 mls/hr Levofloxacin/Dextrose 750 mg/ (Premix) 150 mls @ 100 mls/hr IV Q24H [facility] Methylprednisolone Sodium Succinate (Solu-Medrol) 125 mg IVPUSH ONETIME ONE Stop: 02/01/18 10:07 Last Admin: 02/01/18 10:10 Dose: 125 mg Potassium Chloride (Klor-Con 10) 40 meq PO ONETIME ONE Stop: 02/02/18 10:12 Last Admin: 02/02/18 12:12 Dose: 40 meq - Exam Quality Assessment: Denies: Supplemental Oxygen General: Reports: Alert, Oriented Neck: Reports: Supple Lungs: Reports: Clear to Auscultation, Normal Respiratory Effort, Decreased Breath Sounds. Denies: Wheezing GI/Abdominal Exam: Normal Bowel Sounds Extremities: No Pedal Edema
--- NOTE | 2018-02-03 13:58 | EKG ---
02/01/2018 - ELIS KEMP - TIME: 11:05. FINDINGS: EKG, per my reading, shows sinus rhythm at the rate of 76. [facility] /[id number]
--- NOTE | 2018-02-03 14:16 | EKG ---
02/01/2018- ELIS KEMP - 9:28 a.m. FINDINGS: EKG, per my reading, shows narrow complex, quite regular tachycardia at the rate of 145. Hard to say if it is supraventricular tachycardia or AFib. [facility] /[id number]
--- NOTE | 2018-02-04 07:29 | EDM.PDOC ---
Scribed by Sugar Suh 02/01/18 1056 for Jarrod Rose MD ED HPI GENERAL MEDICAL PROBLEM - General Chief Complaint: Respiratory Problem Stated Complaint: CONGESTION, SOB Time Seen by Provider: 02/01/18 09:25 Source of Information: Reports: Patient, Family, RN, RN Notes Reviewed History Limitations: Reports: No Limitations - History of Present Illness INITIAL COMMENTS - FREE TEXT/NARRATIVE: Arrives from home by POV with c/o onset of cough about a "week or so" ago with progressively worsening shortness of breath, sputum production that was initially clear, but has become darker. Last evening pt's states that he felt feverish and was confused and seemed to have delirium through out the night. Pt denies chest pain, edema, palpitations, or orthopnea. 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 Treatments - Related Data Allergies Allergy/AdvReac Type Severity Reaction Status Date / Time amitriptyline Allergy Cannot Verified 02/01/18 18:41 Remember levofloxacin [From Levaquin] Allergy Itching Verified 02/01/18 18:41 Home Meds: Home Meds Aspirin [Halfprin] 81 mg PO DAILY 02/01/18 [History] Cyanocobalamin (Vitamin B-12) [Cyanocobalamin Injection] 1,000 mcg IJ .MONTHLY 02/01/18 [History] Omeprazole 20 mg PO DAILY 02/01/18 [History] Rosuvastatin Calcium [Crestor] 20 mg PO DAILY 02/01/18 [History] Valsartan/Hydrochlorothiazide [Valsartan-Hctz 80-12.5 mg Tab] 1 each PO DAILY [History] metFORMIN [Glucophage] 1,000 mg PO BIDMEALS 02/01/18 [History] Albuterol [Ventolin HFA] 1 puff INH Q6H PRN #1 02/03/18 [Rx] Albuterol/Ipratropium [DuoNeb 3.0-0.5 MG/3 ML] 1 dose INH Q6H PRN #0 02/03/18 [ Rx] Amoxicillin/Potassium Clav [Augmentin 500-125 Tablet] 1 each PO TID #15 tablet 02/03/18 [Rx] Budesonide [Pulmicort Flexhaler] 180 mcg IH BID #1 02/03/18 [Rx] Levothyroxine [Synthroid] 50 mcg PO ACBREAKFAST #30 tablet 02/03/18 [Rx] Oseltamivir [Tamiflu] 30 mg PO DAILY #3 cap 02/03/18 [Rx] Prednisone [IJD: Prednisone] 10 mg PO DAILY #30 tab 02/03/18 [Rx] Past Medical History HEENT History: Reports: Impaired Vision Respiratory History: Reports: COPD Social & Family History - Family History Family Medical History: Noncontributory - Tobacco Use Smoking Status *Q: Former Smoker - Living Situation & Occupation Living situation: Reports: , with Spouse Occupation: Retired ED ROS GENERAL - Review of Systems Review Of Systems: ROS reveals no pertinent complaints other than HPI. ED EXAM, GENERAL - Physical Exam Exam: See Below Exam Limited By: No Limitations General Appearance: Alert, WD/WN, No Apparent Distress Eye Exam: Bilateral Eye: Normal Inspection Ears: Normal External Exam, Hearing Grossly Normal Nose: Normal Inspection, Normal Mucosa, No Blood Throat/Mouth: Normal Inspection, Normal Lips, Normal Teeth, Normal Gums, Normal Oropharynx, Normal Voice, No Airway Compromise Head: Atraumatic, Normocephalic Neck: Normal Inspection, Supple, Non-Tender, Full Range of Motion. No: Lymphadenopathy (L), Lymphadenopathy (R) Respiratory/Chest: No Respiratory Distress, No Accessory Muscle Use, Chest Non- Tender, Decreased Breath Sounds, Rhonchi (Rt base), Wheezing, Prolonged Expiration Cardiovascular: No Edema, Tachycardia, Irregularly Irregular GI/Abdominal: Normal Bowel Sounds, Soft, Non-Tender, No Distention, No Abnormal Bruit (Male) Exam: Deferred Rectal (Males) Exam: Deferred Back Exam: Normal Inspection, Full Range of Motion, NT Extremities: Normal Inspection, Normal Range of Motion, Non-Tender, Normal Capillary Refill, No Pedal Edema Neurological: Alert, Oriented, CN II-XII Intact, Normal Cognition, No Motor/ Sensory Deficits Psychiatric: Normal Affect, Normal Mood Skin Exam: Warm, Dry, Intact, Normal Color, No Rash EKG INTERPRETATION EKG Date: 02/01/18 Time: 09:28 Rhythm: Other (atrial fib with rapid ventricular rate.) Rate (Beats/Min): 145 [place]: Normal P-Wave: Present QRS: Other (inferior Q wave. RSR'.) ST-T: Other (ST depression in V2 to V5.) QT: Prolonged Comparison: NA - No Prior EKG EKG Interpretation Comments: EKG repeated at 11:05 A.M.on 02/01/18. Sinus rhythm at a rate of 76 with nonspecific intraventricular conduction delay. Course - Vital Signs Last Recorded V/S: Last Vital Signs Temp 36.9 C 02/03/18 11:30 Pulse 63 02/03/18 11:30 Resp 20 02/03/18 11:30 BP 107/63 02/03/18 11:30 Pulse Ox 99 02/03/18 11:30 Initial HR 156, irregular. - Orders/Labs/Meds Labs: Laboratory Tests 02/01/18 02/01/18 02/01/18 Range/Units 09:53 09:53 09:53 WBC 9.8 (5.0-10.0) 10^3/uL RBC 4.16 L (4.6-6.2) 10^6/uL Hgb 12.5 L (14.0-18.0) g/dL Hct 39.0 L (40.0-54.0) % MCV 93.8 (80-100) fL MCH 30.0 (27.0-34.0) pg MCHC 32.1 L (33.0-35.0) g/dL Plt Count 169 (150-450) 10^3/uL Neut % (Auto) 71.8 (42.2-75.2) % Lymph % (Auto) 13.1 L (20.5-50.1) % [place]cd[place] % (Auto) 11.6 H (2-8) % Eos % (Auto) 3.2 H (1.0-3.0) % Baso % (Auto) 0.3 (0.0-1.0) % PT 9.4 (9.0-12.0) SEC INR 0.9 (0.9-1.2) APTT 28.6 (22.0-34.0) SEC Sodium 137 (135-145) mmol/L Potassium 3.7 (3.6-5.0) mmol/L Chloride 104 (101-111) mmol/L Carbon Dioxide 24.0 (21.0-31.0) mmol/L Anion Gap 12.7 BUN 13 (7-18) mg/dL Creatinine 1.0 (0.6-1.3) mg/dL Est Cr Clr Drug Dosing 59.82 mL/min Estimated GFR (MDRD) > 60 BUN/Creatinine Ratio 13.00 Glucose 141 H (74-105) mg/dL POC Glucose (83-110) mg/dl Lactic Acid (0.5-2.2) mmol/L Calcium 9.2 (8.4-10.2) mg/dl Magnesium 1.7 L (1.8-2.5) mg/dL Total Bilirubin 0.9 (0.2-1.0) mg/dL AST 17 (10-42) IU/L ALT 12 (10-60) IU/L Alkaline Phosphatase 97 (42-121) IU/L Troponin I 0.02 (0.00-0.02) ng/ml B-Natriuretic Peptide 38 (0-100) pg/ml Total Protein 7.3 (6.7-8.2) g/dl Albumin 4.0 (3.2-5.5) g/dl Globulin 3.3 Albumin/Globulin Ratio 1.21 TSH, Ultra Sensitive (0.45-5.33) uIu/mL Urine Color (YELLOW) Urine Appearance (CLEAR) Urine pH (5.0-9.0) Ur Specific Welch (1.005-1.030) Urine Protein (NEGATIVE) Urine Glucose (UA) (NEGATIVE) Urine Ketones (NEGATIVE) Urine Occult Blood (NEGATIVE) Urine Nitrite (NEGATIVE) Urine Bilirubin (NEGATIVE) Urine Urobilinogen (0.2-1.0) mg/dL Ur Leukocyte Esterase (NEGATIVE) Urine RBC /HPF Urine WBC (0-5/HPF) /HPF Ur Epithelial Cells /HPF Urine Bacteria (0-FEW/HPF) /HPF Urine Mucus /LPF 02/01/18 02/01/18 02/01/18 Range/Units 09:53 09:53 10:04 WBC (5.0-10.0) 10^3/uL RBC (4.6-6.2) 10^6/uL Hgb (14.0-18.0) g/dL Hct (40.0-54.0) % MCV (80-100) fL MCH (27.0-34.0) pg MCHC (33.0-35.0) g/dL Plt Count (150-450) 10^3/uL Neut % (Auto) (42.2-75.2) % Lymph % (Auto) (20.5-50.1) % Mcdowell % (Auto) (2-8) % Eos % (Auto) (1.0-3.0) % Baso % (Auto) (0.0-1.0) % PT (9.0-12.0) SEC INR (0.9-1.2) APTT (22.0-34.0) SEC Sodium (135-145) mmol/L Potassium (3.6-5.0) mmol/L Chloride (101-111) mmol/L Carbon Dioxide (21.0-31.0) mmol/L Anion Gap BUN (7-18) mg/dL Creatinine (0.6-1.3) mg/dL Est Cr Clr Drug Dosing mL/min Estimated GFR (MDRD) BUN/Creatinine Ratio Glucose (74-105) mg/dL POC Glucose 129 H (83-110) mg/dl Lactic Acid 1.1 (0.5-2.2) mmol/L Calcium (8.4-10.2) mg/dl Magnesium (1.8-2.5) mg/dL Total Bilirubin (0.2-1.0) mg/dL AST (10-42) IU/L ALT (10-60) IU/L Alkaline Phosphatase (42-121) IU/L Troponin I (0.00-0.02) ng/ml B-Natriuretic Peptide (0-100) pg/ml Total Protein (6.7-8.2) g/dl Albumin (3.2-5.5) g/dl Globulin Albumin/Globulin Ratio TSH, Ultra Sensitive 0.12 L (0.45-5.33) uIu/mL Urine Color (YELLOW) Urine Appearance (CLEAR) Urine pH (5.0-9.0) Ur Specific Welch (1.005-1.030) Urine Protein (NEGATIVE) Urine Glucose (UA) (NEGATIVE) Urine Ketones (NEGATIVE) Urine Occult Blood (NEGATIVE) Urine Nitrite (NEGATIVE) Urine Bilirubin (NEGATIVE) Urine Urobilinogen (0.2-1.0) mg/dL Ur Leukocyte Esterase (NEGATIVE) Urine RBC /HPF Urine WBC (0-5/HPF) /HPF Ur Epithelial Cells /HPF Urine Bacteria (0-FEW/HPF) /HPF Urine Mucus /LPF 02/01/18 Range/Units 10:21 WBC (5.0-10.0) 10^3/uL RBC (4.6-6.2) 10^6/uL Hgb (14.0-18.0) g/dL Hct (40.0-54.0) % MCV (80-100) fL MCH (27.0-34.0) pg MCHC (33.0-35.0) g/dL Plt Count (150-450) 10^3/uL Neut % (Auto) (42.2-75.2) % Lymph % (Auto) (20.5-50.1) % [place] % (Auto) (2-8) % Eos % (Auto) (1.0-3.0) % Baso % (Auto) (0.0-1.0) % PT (9.0-12.0) SEC INR (0.9-1.2) APTT (22.0-34.0) SEC Sodium (135-145) mmol/L Potassium (3.6-5.0) mmol/L Chloride (101-111) mmol/L Carbon Dioxide (21.0-31.0) mmol/L Anion Gap BUN (7-18) mg/dL Creatinine (0.6-1.3) mg/dL Est Cr Clr Drug Dosing mL/min Estimated GFR (MDRD) BUN/Creatinine Ratio Glucose (74-105) mg/dL POC Glucose (83-110) mg/dl Lactic Acid (0.5-2.2) mmol/L Calcium (8.4-10.2) mg/dl Magnesium (1.8-2.5) mg/dL Total Bilirubin (0.2-1.0) mg/dL AST (10-42) IU/L ALT (10-60) IU/L Alkaline Phosphatase (42-121) IU/L Troponin I (0.00-0.02) ng/ml B-Natriuretic Peptide (0-100) pg/ml Total Protein (6.7-8.2) g/dl Albumin (3.2-5.5) g/dl Globulin Albumin/Globulin Ratio TSH, Ultra Sensitive (0.45-5.33) uIu/mL Urine Color Yellow (YELLOW) Urine Appearance Slightly cloudy (CLEAR) Urine pH 7.0 (5.0-9.0) Ur Specific Welch 1.015 (1.005-1.030) Urine Protein Negative (NEGATIVE) Urine Glucose (UA) Negative (NEGATIVE) Urine Ketones Negative (NEGATIVE) Urine Occult Blood Negative (NEGATIVE) Urine Nitrite Negative (NEGATIVE) Urine Bilirubin Negative (NEGATIVE) Urine Urobilinogen 1.0 (0.2-1.0) mg/dL Ur Leukocyte Esterase Negative (NEGATIVE) Urine RBC 0-5 /HPF Urine WBC 0-5 (0-5/HPF) /HPF Ur Epithelial Cells Rare /HPF Urine Bacteria Rare (0-FEW/HPF) /HPF Urine Mucus Rare /LPF Influenza B: POSITIVE Meds: Medications Discontinued Medications Generic Name Dose Route Start Last Admin Trade Name Freq PRN Reason Stop Dose Admin Acetaminophen 650 mg 02/01/18 13:35 02/01/18 22:06 Tylenol PO 650 mg Q4H PRN Administration Pain (Mild 1-3)/fever Albuterol 2.5 mg 02/01/18 13:32 Proventil Neb Soln NEB Q4HRRT PRN sob Albuterol/Ipratropium 3 ml 02/01/18 10:06 02/01/18 10:16 Duoneb 3.0-0.5 Mg/3 Ml NEB 02/01/18 10:07 3 ml ONETIME ONE Administration Albuterol/Ipratropium 3 ml 02/01/18 15:00 02/03/18 07:35 Duoneb 3.0-0.5 Mg/3 Ml NEB 3 ml Q8HRRT LAURIE Administration Aspirin 81 mg 02/02/18 08:00 02/03/18 08:25 Aspirin PO 81 mg WITHBREAKFAST LAURIE Administration Budesonide 0.5 mg 02/01/18 18:00 02/03/18 07:35 Pulmicort NEB 0.5 mg BIDRT LAURIE Administration Diltiazem HCl 10 mg 02/01/18 10:07 02/01/18 12:49 Diltiazem IVPUSH 02/01/18 10:08 Not Given ONETIME ONE Docusate Sodium 100 mg 02/01/18 13:35 Colace PO BID PRN Constipation Heparin Sodium (Porcine) 5,000 units 02/01/18 14:00 02/03/18 06:08 Heparin Sodium SUBCUT 5,000 units Q8HR LAURIE Administration Hydrochlorothiazide 12.5 mg 02/02/18 09:00 02/03/18 08:25 Hydrochlorothiazide PO 12.5 mg DAILY LAURIE Administration Sodium Chloride 1,000 mls @ 999 mls/hr 02/01/18 10:06 02/01/18 10:13 Normal Saline IV 02/01/18 11:06 999 mls/hr .BOLUS ONE Administration Levofloxacin/Dextrose 750 mg/ 150 mls @ 100 mls/hr 02/01/18 11:48 02/01/18 12 :35 Premix IV 02/01/18 13:17 100 mls/hr ONETIME ONE Administration Levofloxacin/Dextrose 750 mg/ 150 mls @ 100 mls/hr 02/02/18 11:00 Premix IV Q24H LAURIE Azithromycin 500 mg/ Sodium 250 mls @ 250 mls/hr 02/01/18 15:00 02/03/18 03: 07 Chloride IV Not Given Q24H LAUIRE Ceftriaxone Sodium 1,000 mg/ 100 mls @ 200 mls/hr 02/01/18 14:30 02/02/18 14: 50 Sodium Chloride IV 200 mls/hr Q24H LAURIE Administration Insulin Aspart 0 unit 02/01/18 17:00 02/03/18 11:47 Novolog SUBCUT Not Given TIDAC [facility] Protocol Levothyroxine Sodium 50 mcg 02/02/18 06:00 02/03/18 06:09 Synthroid PO 50 mcg ACBREAKFAST LAURIE Administration Methylprednisolone Sodium Succinate 125 mg 02/01/18 10:06 02/01/18 10:10 Solu-Medrol IVPUSH 02/01/18 10:07 125 mg ONETIME ONE Administration Methylprednisolone Sodium Succinate 40 mg 02/01/18 18:00 02/03/18 10:16 Solu-Medrol IVPUSH 40 mg Q8H LAURIE Administration Ondansetron HCl 4 mg 02/01/18 13:35 Zofran Odt PO Q6H PRN nausea, able to take PO Oseltamivir Phosphate 30 mg 02/01/18 17:15 02/03/18 08:25 Tamiflu PO 30 mg DAILY LAURIE Administration Oxycodone HCl 5 mg 02/01/18 13:35 Oxycodone PO Q4H PRN Pain (moderate 4-6) Pantoprazole Sodium 40 mg 02/02/18 06:00 02/03/18 06:09 Protonix PO 40 mg ACBREAKFAST LAURIE Administration Potassium Chloride 40 meq 02/02/18 10:11 02/02/18 12:12 Klor-Con 10 PO 02/02/18 10:12 40 meq ONETIME ONE Administration Sodium Chloride 10 ml 02/01/18 09:35 02/02/18 01:39 Saline Flush FLUSH 10 ml ASDIRECTED PRN Administration Keep Vein Open Valsartan 80 mg 02/02/18 09:00 02/03/18 08:25 Diovan PO 80 mg DAILY LAURIE Administration Zolpidem Tartrate 5 mg 02/01/18 13:35 02/01/18 22:05 Ambien PO 5 mg BEDTIME PRN Administration Sleep Diltiazem 10mg IVP held due to spontaneous conversion to SR rate 80's. - Radiology Interpretation Free Text/Narrative:: EXAM: XR Chest, 1 View EXAM DATE/TIME: 02/01/2018 10:01 AM CLINICAL HISTORY: 82 years old, male; Signs and symptoms; Shortness of breath; Patient HX: Tachycardia, HX copd TECHNIQUE: Frontal view of the chest. COMPARISON: No relevant prior studies available. FINDINGS: Lungs: There is pulmonary hyperexpansion. There is a small amount of airspace consolidation at both lung bases. The remaining pulmonary parenchyma is clear. Pleural space: Unremarkable. No pneumothorax. Heart: Unremarkable. No cardiomegaly. Mediastinum: Unremarkable. Bones/joints: Unremarkable. IMPRESSION: 1. Consolidation at the lung bases may represent atelectasis or pneumonia. 2. Chronic obstructive pulmonary disease. Thank you for allowing us to participate in the care of your patient. Dictated and Authenticated by: Keshawn Merchant M maria alejandra: ELIS KEMP Age: 82Years M Date: 02/01/2018 SSN: -- : [id number] Study: CT CHEST WO Requesting Physician: Jarrod Rose Images: [id number] Addl Studies: Provided Clinical History: Contrast: Without Contrast Medium: Contrast Amount: Contrast Method: Page 1 of 2 EXAM: CT Chest Without Intravenous Contrast EXAM DATE/TIME: 02/01/2018 10:19 AM CLINICAL HISTORY: 82 years old, male; Signs and symptoms; Shortness of breath; Patient HX: Rhonchi rt base TECHNIQUE: Axial computed tomography images of the chest without intravenous contrast. All CT scans at this facility use one or more dose reduction techniques, viz.: automated exposure control; ma/kV adjustment per patient size (including targeted exams where dose is matched to indication; i.e. head); or iterative reconstruction technique. Coronal and sagittal reformatted images were created and reviewed. COMPARISON: CR - Chest 1V Frontal 2018-02-01 10:01 FINDINGS: Lungs: There are mild interstitial changes in the lungs. There is bronchial wall thickening. There are small spotty areas tree-in-bud pattern infiltrate. There is pulmonary hyperexpansion. Pleural space: Unremarkable. No pneumothorax. No significant effusion. Heart: Unremarkable. No cardiomegaly. No significant pericardial effusion. Mediastinum: There is a moderate sized hiatal hernia. Bones/joints: Unremarkable. No acute fracture. No dislocation. Soft tissues: Unremarkable. Vasculature: Unremarkable. No thoracic aortic aneurysm. Lymph nodes: Unremarkable. No enlarged lymph nodes. Gallbladder and bile ducts: There are small stones or sludge in the gallbladder. No inflammatory changes to the gallbladder. ELIS KEMP | Final Radiology Report CONFIDENTIALITY STATEMENT This report is intended only for use by the referring physician, and only in accordance with law. If you received this in error, call [phone]. Page 2 of 2 Kidneys and ureters: There is a 5.6 cm right renal cortical cyst. There are probably septations. There is an incompletely demonstrated 4.5 cm left renal cortical cyst. IMPRESSION: 1. Mild scattered interstitial changes as described. This may represent acute or chronic bronchitis. An atypical infection is possible. Chronic interstitial lung disease is possible. 2. No other acute changes in the chest. 3. Chronic obstructive pulmonary disease. Thank you for allowing us to participate in the care of your patient. Dictated and Authenticated by: Keshawn Merchant MD 02/01/2018 11:00 AM Central Time ([place] & [place]) CT Results Date: 02/01/18 CT Results Time: 11:04 Departure - Departure Time of Disposition: 12:21 ((admit to Dr. Hayden)) Disposition: Admitted As Inpatient 67 Condition: Serious Clinical Impression: COPD with acute exacerbation, New onset atrial fibrillation, Atrial fibrillation with rapid ventricular response, Influenza B Pneumonia Qualifiers: Pneumonia type: due to influenza A virus Laterality: bilateral Lung location: lower lobe of lung Qualified Code(s): J11.00 - Influenza due to unidentified influenza virus with unspecified type of pneumonia - Discharge Information I have read and agree with the documentation that has been completed regarding this visit. By signing this record, I attest that the documentation was completed in my physical presence and is an accurate record of the encounter.
== END 2018-02-03 12:10 | disposition home or self-care (01) | DRG 194 ==
LOC: DL.ED 09:05 → UNDOADMIN 12:40 → DL.MS 12:40
PROVIDERS: ADMIT Internal Medicine; ATTEND Internal Medicine
DX: J10.00 Influenza due to other identified influenza virus with unspecified type of pneumonia (principal); J44.1 Chronic obstructive pulmonary disease with (acute) exacerbation; J44.0 Chronic obstructive pulmonary disease with (acute) lower respiratory infection; I48.91 Unspecified atrial fibrillation; I10 Essential (primary) hypertension; E11.9 Type 2 diabetes mellitus without complications; E03.9 Hypothyroidism, unspecified; E53.8 Deficiency of other specified B group vitamins; H54.7 Unspecified visual loss; Z88.1 Allergy status to other antibiotic agents; Z88.8 Allergy status to other drugs, medicaments and biological substances; Z79.84 Long term (current) use of oral hypoglycemic drugs; R06.02 Shortness of breath; R05 Cough; R09.3 Abnormal sputum; R50.9 Fever, unspecified; R41.0 Disorientation, unspecified; Z79.82 Long term (current) use of aspirin; Z79.52 Long term (current) use of systemic steroids; Z79.899 Other long term (current) drug therapy; Z87.891 Personal history of nicotine dependence
CPT/HCPCS: 36415; 71045; 71250; 80053; 81001; 82962; 83605; 83735; 83880; 84443; 84484; 85025; 85610; 85730; 87040 ×2; 93005 ×2; 93010 ×2; 94640; 96361; 96374; 96375; 99285; J1956; J2930; J7030; J7050; 80048; 87070; 87205; 87804; 94010; A9270-GY; J0456; J0696; J1644; J1815-GY; J2920

== ENCOUNTER 2020-09-08 19:42 | Emergency (ER) | payer MEDICARE, OTHER ==
[2020-09-08 20:58] LABS: ANION GAP 13.5 mEq/L (7-13); CHLORIDE,CL 103 mmol/L (98-107); SODIUM,NA 136 mmol/L (136-145)
--- NOTE | 2020-09-08 21:39 | CR ---
PROCEDURE INFORMATION: Exam: XR Chest, 1 View Exam date and time: 09/08/2020 9:33 PM Age: 85 years old Clinical indication: Cough TECHNIQUE: Imaging protocol: XR of the chest Views: 1 view. COMPARISON: CR Chest 1V Frontal 02/01/2018 10:01 AM FINDINGS: Lungs: Unremarkable. No consolidation. Pleural space: Unremarkable. No pleural effusion. No pneumothorax. Heart/Mediastinum: Unremarkable. No cardiomegaly. Vasculature: Uncoiled thoracic aorta. Bones/joints: Unremarkable. IMPRESSION: No acute findings.
--- NOTE | 2020-09-08 21:46 | EDM.PDOC ---
ED HPI GENERAL MEDICAL PROBLEM - General Chief Complaint: Respiratory Problem Stated Complaint: COUGH, CHEST PAIN Time Seen by Provider: 09/08/20 21:41 Source of Information: Reports: Patient History Limitations: Reports: No Limitations - History of Present Illness INITIAL COMMENTS - FREE TEXT/NARRATIVE: ED with cough hx x 2 weeks , No fever chills, no loss of taste or smell, worried as prior pneumonia last year, other ernst feels fine. Hx of home nebs, chronic lung disease. - Related Data Allergies Allergy/AdvReac Type Severity Reaction Status Date / Time amitriptyline Allergy Cannot Verified 09/08/20 21:45 Remember levofloxacin [From Levaquin] Allergy Itching Verified 09/08/20 21:45 Home Meds: Home Meds Aspirin [Halfprin] 81 mg PO DAILY 02/01/18 [History] Cyanocobalamin (Vitamin B-12) [Cyanocobalamin Injection] 1,000 mcg IJ .MONTHLY 02/01/18 [History] Rosuvastatin Calcium [Crestor] 20 mg PO DAILY 02/01/18 [History] metFORMIN [Glucophage] 1,000 mg PO BIDMEALS 02/01/18 [History] Albuterol/Ipratropium [DuoNeb 3.0-0.5 MG/3 ML] 1 dose INH Q6H PRN #0 02/03/18 [Rx] Budesonide [Pulmicort Flexhaler] 180 mcg INH ASDIRECTED 09/08/20 [History] Cetirizine [ZyrTEC] 5 mg PO DAILY 09/08/20 [History] Fluticasone Propion/Salmeterol [Fluticasone-Salmeterol 250-50] ASDIRECTED 09/08/20 [History] Fluticasone Propionate [Flonase Allergy Relief] 1 spray INH ASDIRECTED 09/08/20 [History] Levothyroxine [Synthroid] 75 mcg PO ACBREAKFAST 09/08/20 [History] Losartan [Cozaar] 50 mg PO DAILY 09/08/20 [History] Potassium Chloride [Klor-Con 10] 10 meq PO ASDIRECTED 09/08/20 [History] hydroCHLOROthiazide [Hydrochlorothiazide] 12.5 mg PO ASDIRECTED 09/08/20 [History] Past Medical History HEENT History: Reports: Impaired Vision Cardiovascular History: Reports: Hypertension Respiratory History: Reports: COPD Psychiatric History: Reports: None Endocrine/Metabolic History: Reports: Diabetes, Type II, Hypothyroidism Hematologic History: Reports: B12 Deficiency - Infectious Disease History Infectious Disease History: Reports: Mumps - Past Surgical History Head Surgeries/Procedures: Reports: None HEENT Surgical History: Reports: None Respiratory Surgical History: Reports: None GI Surgical History: Reports: Hernia Repair/Other Social & Family History - Family History Family Medical History: No Pertinent Family History - Caffeine Use Caffeine Use: Reports: Coffee, Soda, Tea - Living Situation & Occupation Living situation: Reports: , with Spouse Occupation: Retired ED ROS GENERAL - Review of Systems Review Of Systems: See Below Constitutional: Denies: Fever, Chills, Malaise, Weakness, Fatigue, Weight Loss HEENT: Reports: No Symptoms Respiratory: Reports: Cough. Denies: Shortness of Breath Cardiovascular: Reports: No Symptoms GI/Abdominal: Reports: No Symptoms Musculoskeletal: Reports: No Symptoms Skin: Reports: No Symptoms Neurological: Reports: No Symptoms ED EXAM, GENERAL - Physical Exam Exam: See Below Exam Limited By: No Limitations General Appearance: Alert, No Apparent Distress, Anxious Eye Exam: Bilateral Eye: EOMI Ears: Normal External Exam, Hearing Loss Nose: Normal Inspection. No: Nasal Drainage Throat/Mouth: Normal Inspection Respiratory/Chest: No Respiratory Distress, Lungs Clear, Normal Breath Sounds, Other (rare dry non productive cough) Cardiovascular: Normal Peripheral Pulses, Regular Rate, Rhythm GI/Abdominal: Normal Bowel Sounds, Soft Back Exam: Full Range of Motion Extremities: Normal Inspection, Normal Range of Motion. No: Pedal Edema Neurological: Alert, Oriented Psychiatric: Normal Affect, Normal Mood Skin Exam: Warm, Dry, Intact, Normal Color Course - Vital Signs Last Recorded V/S: Last Vital Signs Temp 97.7 F 09/08/20 20:21 Pulse 135 H 09/08/20 20:21 Resp 17 09/08/20 20:21 BP 145/85 H 09/08/20 20:21 Pulse Ox 95 09/08/20 20:21 - Orders/Labs/Meds Orders: Active Orders 24 hr Category Date Time Status Isolation [COMM] Routine Oth 09/08/20 20:20 Active Labs: Laboratory Tests 09/08/20 09/08/20 09/08/20 Range/Units 20:30 20:30 20:38 WBC 5.7 (5.0-10.0) 10^3/uL RBC 3.65 L (4.6-6.2) 10^6/uL Hgb 11.4 L (14.0-18.0) g/dL Hct 34.9 L (40.0-54.0) % MCV 95.6 (80-100) fL MCH 31.2 (27.0-34.0) pg MCHC 32.7 L (33.0-35.0) g/dL Plt Count 188 (150-450) 10^3/uL Neut % (Auto) 57.2 (42.2-75.2) % Lymph % (Auto) 26.7 (20.5-50.1) % [place] % (Auto) 7.9 (2-8) % Eos % (Auto) 7.7 H (1.0-3.0) % Baso % (Auto) 0.5 (0.0-1.0) % Sodium 136 (136-145) mmol/L Potassium 3.5 (3.5-5.1) mmol/L Chloride 103 (98-107) mmol/L Carbon Dioxide 23 (21-32) mmol/L Anion Gap 13.5 H (7-13) mEq/L BUN 12 (7-18) mg/dL Creatinine 1.18 (0.70-1.30) mg/dL Est Cr Clr Drug Dosing 54.29 mL/min Estimated GFR (MDRD) 59 BUN/Creatinine Ratio 10.2 (No establ ref range) Glucose 168 H (74-99) mg/dL Calcium 8.9 (8.5-10.1) mg/dL Total Bilirubin 0.3 (0.2-1.0) mg/dL AST 15 (15-37) U/L ALT 18 (16-63) U/L Alkaline Phosphatase 117 H (46-116) U/L Troponin I < 0.017 (0.000-0.056) ng/mL B-Natriuretic Peptide 29 (0-100) pg/ml Total Protein 7.0 (6.4-8.2) g/dL Albumin 3.8 (3.4-5.0) g/dL Globulin 3.2 Albumin/Globulin Ratio 1.2 SARS-CoV-2 RNA (JN) Negative (NEGATIVE) Departure - Departure Time of Disposition: :46 Disposition: Home, Self-Care 01 Condition: Good Clinical Impression: Cough in adult patient, Personal history of chronic obstructive pulmonary disease - Discharge Information *PRESCRIPTION DRUG MONITORING PROGRAM REVIEWED*: No *COPY OF PRESCRIPTION DRUG MONITORING REPORT IN PATIENT SALUD: No Instructions: Cough, Adult, [id number] Referrals: PCP,None [Primary Care Provider] - Forms: ED Department Discharge Additional Instructions: humidifier recheck clinic on Friday or Friday if not improved COVID test negative No sign of pneumonia on chest xray diet as tolerated continue to wear mask , limit exposure in high risk environments Sepsis Event Note (ED) - Evaluation Sepsis Screening Result: No Definite Risk - Focused Exam Vital Signs: Vital Signs Temp Pulse Resp BP Pulse Ox 09/08/20 20:21 97.7 F 135 H 17 145/85 H 95 - My Orders Last 24 Hours: My Active Orders 09/08/20 20:20 Isolation [COMM] Routine - Assessment/Plan Last 24 Hours: My Active Orders 09/08/20 20:20 Isolation [COMM] Routine
== END 2020-09-08 21:58 | disposition home or self-care (01) ==
LOC: DL.ED 19:42
DX: J44.9 Chronic obstructive pulmonary disease, unspecified (principal); I10 Essential (primary) hypertension; E11.9 Type 2 diabetes mellitus without complications; E03.9 Hypothyroidism, unspecified; Z79.899 Other long term (current) drug therapy; Z20.828 Contact with and (suspected) exposure to other viral communicable diseases; Z88.8 Allergy status to other drugs, medicaments and biological substances; Z88.1 Allergy status to other antibiotic agents; Z79.82 Long term (current) use of aspirin; Z79.84 Long term (current) use of oral hypoglycemic drugs
CPT/HCPCS: 36415; 71045; 80053; 83880; 84484; 85025; 93005; 99284-25; U0002

== ENCOUNTER 2020-11-08 06:10 | Day surgery (SDC) | payer MEDICARE, OTHER ==
[2020-11-08] MEDS ORDERED: fentaNYL 100 MCG/2 ML SDV IV ONE ×2 (06:11→07:36)
[2020-11-08] MEDS ORDERED: Midazolam 1 MG/ML 2 ML SDV IV ONE ×3 (06:11→07:39)
[2020-11-08] MEDS ORDERED: Midazolam 1 MG/ML 2 ML SDV ONE (06:38)
[2020-11-08] MEDS ORDERED: fentaNYL 100 MCG/2 ML SDV ONE (06:39)
[2020-11-08] MEDS ORDERED: Dextrose 5%-0.45% NaCl 1,000 ML IV SCH ×2 (06:40→07:45)
[2020-11-08] MEDS ORDERED: Sodium Chloride 0.9% 10 ML Syringe FLUSH PRN (07:34)
--- NOTE | 2020-11-08 09:32 | OR ---
DATE: 11/08/2020 PROCEDURES: Esophagogastroduodenoscopy and multiple pinch biopsies. INSTRUMENT USED: [id number] Olympus video panendoscope. PREMEDICATIONS: No oral or topical anesthesia used. Fentanyl 50 mcg intravenous, Versed 1.5 mg intravenous, nasal O2 cannula. The procedure was done under pulse oximetry, BP recording, and air sampling and monitoring. INDICATION: The patient with persistent upper abdominal pain, as well as coughing spells, unexplained and not responsive to medical measures, on acid suppressant. Esophagogastroduodenoscopy is performed for detection of any active erosive lesions, Melendrez esophagus and/or malignancy also under consideration, H pylori status to be determined, endoscopic hemostasis therapy if needed. PROCEDURE IN DETAIL: The scope was passed with ease. Adequate visualization of the esophagus was made from proximal to distal areas. No upper esophageal lesions identified. No distal esophageal stricture. No uphill or downhill esophageal varices. No Hannah-Camp tear. No evidence of erosive esophagitis by [address] criteria. No esophageal polyp or tumor mass identified. Sliding hiatal hernia was noted. Z-line was seen at around 40 cm distal to the oral verge, configuration consistent with grade 1 by ZAP classification. No proximal gastric varices noted. Gastric fundus examination by retroflexion showed no polypoid lesions. No gastric ulcer, malignant mass, or vascular ectasia identified. Duodenal bulb showed no ulcer. Visualized second part of the duodenum was unremarkable. Multiple pinch biopsies were obtained from the gastric antrum and proximal body and sent for PyloriTek test for H pylori, and if negative in an hour, the tissue is to be sent for histopathology. No bleeding was noted from any of the visualized areas at the completion of examination. Photographs were taken of the duodenal bulb, gastric antrum, fundus, and distal esophagus. IMPRESSION: Sliding hiatal hernia. The patient tolerated the procedure well. [facility] /[id number]
== END 2020-11-08 09:51 | disposition home or self-care (01) ==
LOC: DL.SDS 06:10
PROVIDERS: ATTEND Internal Medicine Gastroenterology
DX: A04.8 Other specified bacterial intestinal infections (principal); K44.9 Diaphragmatic hernia without obstruction or gangrene; I10 Essential (primary) hypertension; E03.9 Hypothyroidism, unspecified; E11.9 Type 2 diabetes mellitus without complications; E53.8 Deficiency of other specified B group vitamins; K21.9 Gastro-esophageal reflux disease without esophagitis
CPT/HCPCS: 43239; 87077; J2250; J3010; J7042

== ENCOUNTER 2020-11-17 13:51 | Emergency (ER) | payer MEDICARE, OTHER ==
--- NOTE | 2020-11-17 14:20 | EDM.PDOC ---
ED HPI GENERAL MEDICAL PROBLEM - General Chief Complaint: Abdominal Pain Stated Complaint: THROWING UP,ON ANTIBIOTICS Time Seen by Provider: 11/17/20 14:20 Source of Information: Reports: Patient, RN, RN Notes Reviewed - History of Present Illness INITIAL COMMENTS - FREE TEXT/NARRATIVE: Patient is an 85-year-old male who presents to ER with his son with complaint of upset stomach and vomiting. Patient states on November 08 he did have an EGD performed for history of epigastric burning. Patient states it was found to have H. pylori and was started on tetracycline, Flagyl, omeprazole, and Pepto-Bismol tablets. Son states he believes that the patient has been taking all the pills together on an empty stomach. Today he has vomited twice. Patient son states the patient has had quite a bit of decreased appetite over the past few months. Patient states he has not had Covid and has had two vaccinations which were completed a few weeks ago. Denies any fever or chills. Denies any diarrhea. Denies chest pains or shortness of breath. Onset: Gradual Headache Pain Score (Numeric/FACES): 1 - Related Data Allergies Allergy/AdvReac Type Severity Reaction Status Date / Time amitriptyline Allergy Cannot Verified 11/17/20 14:04 Remember levofloxacin [From Levaquin] Allergy Itching Verified 11/17/20 14:04 Home Meds: Home Meds Rosuvastatin Calcium [Crestor] 12.5 mg PO DAILY 02/01/18 [History] metFORMIN [Glucophage] 500 mg PO BIDMEALS 02/01/18 [History] Levothyroxine [Synthroid] 50 mcg PO ACBREAKFAST 09/08/20 [History] Losartan [Cozaar] 75 mg PO DAILY 09/08/20 [History] Potassium Chloride [Klor-Con 10] 10 meq PO ACBREAKFAST 09/08/20 [History] Bismuth Subsalicylate [Pepto-Bismol] 524 mg PO QID 11/08/20 [History] Omeprazole 20 mg PO BID 11/08/20 [History] Tetracycline HCl 500 mg PO QID 11/08/20 [History] metroNIDAZOLE [Metronidazole] 500 mg PO TID 11/08/20 [History] Past Medical History HEENT History: Reports: Cataract, Impaired Vision Cardiovascular History: Reports: Hypertension Respiratory History: Reports: Asthma, COPD Gastrointestinal History: Reports: None, Helicobacter Pylori Genitourinary History: Reports: None, Renal Calculus Musculoskeletal History: Reports: None, Arthritis Neurological History: Reports: None Psychiatric History: Reports: None Endocrine/Metabolic History: Reports: Diabetes, Type II, Hypothyroidism Hematologic History: Reports: B12 Deficiency Immunologic History: Reports: None Oncologic (Cancer) History: Reports: None Dermatologic History: Reports: None - Infectious Disease History Infectious Disease History: Reports: Chicken Pox, Measles, Mumps, Shingles - Past Surgical History Head Surgeries/Procedures: Reports: None HEENT Surgical History: Reports: None Cardiovascular Surgical History: Reports: None Respiratory Surgical History: Reports: None GI Surgical History: Reports: Colonoscopy, EGD, Hernia Repair/Other Endocrine Surgical History: Reports: None Neurological Surgical History: Reports: None Social & Family History - Family History Family Medical History: No Pertinent Family History - Tobacco Use Tobacco Use Status *Q: Never Tobacco User Second Hand Smoke Exposure: No - Caffeine Use Caffeine Use: Reports: Coffee Caffeine Use Comment: DECAF COFFEE - Recreational Drug Use Recreational Drug Use: No - Living Situation & Occupation Living situation: Reports: , with Spouse Occupation: Retired ED ROS GENERAL - Review of Systems Review Of Systems: Comprehensive ROS is negative, except as noted in HPI. ED EXAM, GI/ABD - Physical Exam Exam: See Below Exam Limited By: No Limitations General Appearance: Alert, WD/WN, No Apparent Distress Eyes: Bilateral: Normal Appearance, EOMI Ears: Normal External Exam, Hearing Grossly Normal Nose: Normal Inspection Throat/Mouth: Normal Inspection, Normal Voice, No Airway Compromise Head: Atraumatic, Normocephalic Neck: Normal Inspection, Supple, Non-Tender, Full Range of Motion Respiratory/Chest: No Respiratory Distress, Decreased Breath Sounds, Crackles (Bases bilaterally) Cardiovascular: Normal Peripheral Pulses, Regular Rate, Rhythm, No Edema, No Gallop, No JVD, No Murmur, No Rub GI/Abdominal Exam: Normal Bowel Sounds, Soft, Non-Tender, No Organomegaly, No Distention (Male) Exam: Deferred Rectal (Males) Exam: Deferred Back Exam: Normal Inspection, Full Range of Motion, NT Extremities: Normal Inspection, Normal Range of Motion, Non-Tender, Normal Capillary Refill, No Pedal Edema Neurological: Alert, Oriented, CN II-XII Intact, Normal Cognition, Normal Gait, Normal Reflexes, No Motor/Sensory Deficits Psychiatric: Normal Affect, Normal Mood Skin Exam: Warm, Dry, Intact, Normal Color, No Rash Lymphatic: No Adenopathy Course - Vital Signs Last Recorded V/S: Last Vital Signs Temp 97.2 F 11/17/20 16:25 Pulse 78 11/17/20 16:25 Resp 18 11/17/20 16:25 BP 124/63 11/17/20 16:25 Pulse Ox 99 11/17/20 16:25 - Orders/Labs/Meds Labs: Laboratory Tests 11/17/20 11/17/20 11/17/20 Range/Units 14:22 14:22 14:22 WBC 11.1 H (5.0-10.0) 10^3/uL RBC 3.78 L (4.6-6.2) 10^6/uL Hgb 11.2 L (14.0-18.0) g/dL Hct 34.3 L (40.0-54.0) % MCV 90.7 D (80-100) fL MCH 29.6 (27.0-34.0) pg MCHC 32.7 L (33.0-35.0) g/dL Plt Count 243 (150-450) 10^3/uL Neut % (Auto) 78.9 H (42.2-75.2) % Lymph % (Auto) 13.0 L (20.5-50.1) % [place] % (Auto) 6.6 (2-8) % Eos % (Auto) 1.2 (1.0-3.0) % Baso % (Auto) 0.3 (0.0-1.0) % Sodium 135 L (136-145) mmol/L Potassium 3.0 L (3.5-5.1) mmol/L Chloride 98 (98-107) mmol/L Carbon Dioxide 23 (21-32) mmol/L Anion Gap 17.0 H (7-13) mEq/L BUN 16 (7-18) mg/dL Creatinine 1.13 (0.70-1.30) mg/dL Est Cr Clr Drug Dosing 48.66 mL/min Estimated GFR (MDRD) > 60 BUN/Creatinine Ratio 14.2 (No establ ref range) Glucose 110 H (74-99) mg/dL Calcium 8.8 (8.5-10.1) mg/dL Total Bilirubin 0.5 (0.2-1.0) mg/dL AST 13 L (15-37) U/L ALT 16 (16-63) U/L Alkaline Phosphatase 99 (46-116) U/L Troponin I < 0.017 (0.000-0.056) ng/mL B-Natriuretic Peptide 48 (0-100) pg/ml Total Protein 7.1 (6.4-8.2) g/dL Albumin 2.9 L (3.4-5.0) g/dL Globulin 4.2 Albumin/Globulin Ratio 0.69 Urine Color (YELLOW) Urine Appearance (CLEAR) Urine pH (5.0-9.0) Ur Specific [place] (1.005-1.030) Urine Protein (NEGATIVE) Urine Glucose (UA) (NEGATIVE) Urine Ketones (NEGATIVE) Urine Occult Blood (NEGATIVE) Urine Nitrite (NEGATIVE) Urine Bilirubin (NEGATIVE) Urine Urobilinogen (0.2-1.0) mg/dL Ur Leukocyte Esterase (NEGATIVE) U Hyaline Cast (Auto) Urine RBC /HPF Urine WBC (0-5/HPF) /HPF Ur Epithelial Cells (NOT SEEN) /HPF Urine Bacteria (0-FEW/HPF) /HPF Urine Mucus (NOT SEEN) /LPF 11/17/20 Range/Units 16:32 WBC (5.0-10.0) 10^3/uL RBC (4.6-6.2) 10^6/uL Hgb (14.0-18.0) g/dL Hct (40.0-54.0) % MCV (80-100) fL MCH (27.0-34.0) pg MCHC (33.0-35.0) g/dL Plt Count (150-450) 10^3/uL Neut % (Auto) (42.2-75.2) % Lymph % (Auto) (20.5-50.1) % [place] % (Auto) (2-8) % Eos % (Auto) (1.0-3.0) % Baso % (Auto) (0.0-1.0) % Sodium (136-145) mmol/L Potassium (3.5-5.1) mmol/L Chloride (98-107) mmol/L Carbon Dioxide (21-32) mmol/L Anion Gap (7-13) mEq/L BUN (7-18) mg/dL Creatinine (0.70-1.30) mg/dL Est Cr Clr Drug Dosing mL/min Estimated GFR (MDRD) BUN/Creatinine Ratio (No establ ref range) Glucose (74-99) mg/dL Calcium (8.5-10.1) mg/dL Total Bilirubin (0.2-1.0) mg/dL AST (15-37) U/L ALT (16-63) U/L Alkaline Phosphatase (46-116) U/L Troponin I (0.000-0.056) ng/mL B-Natriuretic Peptide (0-100) pg/ml Total Protein (6.4-8.2) g/dL Albumin (3.4-5.0) g/dL Globulin Albumin/Globulin Ratio Urine Color Dark yellow (YELLOW) Urine Appearance Clear (CLEAR) Urine pH 5.5 (5.0-9.0) Ur Specific [place] 1.025 (1.005-1.030) Urine Protein Trace H (NEGATIVE) Urine Glucose (UA) Negative (NEGATIVE) Urine Ketones Negative (NEGATIVE) Urine Occult Blood Negative (NEGATIVE) Urine Nitrite Negative (NEGATIVE) Urine Bilirubin Negative (NEGATIVE) Urine Urobilinogen 0.2 (0.2-1.0) mg/dL Ur Leukocyte Esterase Negative (NEGATIVE) U Hyaline Cast (Auto) Moderate Urine RBC 0-5 /HPF Urine WBC 0-5 (0-5/HPF) /HPF Ur Epithelial Cells Rare (NOT SEEN) /HPF Urine Bacteria Rare (0-FEW/HPF) /HPF Urine Mucus Moderate H (NOT SEEN) /LPF Meds: Medications Discontinued Medications Generic Name Dose Route Start Last Admin Trade Name Stuartq PRN Reason Stop Dose Admin Acetaminophen 650 mg 11/17/20 16:09 11/17/20 16:28 Tylenol PO 11/17/20 16:10 650 mg NOW ONE Administration Sodium Chloride 1,000 mls @ 150 mls/hr 11/17/20 14:52 11/17/20 15:01 Normal Saline IV 11/17/20 21:31 150 mls/hr CONTINUOUS ONE Administration Potassium Chloride 20 meq/ 100 mls @ 50 mls/hr 11/17/20 15:40 11/17/20 15:48 Premix IV 11/17/20 17:39 50 mls/hr ONETIME ONE Administration Ondansetron HCl 4 mg 11/17/20 14:52 11/17/20 15:01 Zofran IV 11/17/20 14:53 4 mg ONETIME ONE Administration Potassium Chloride 20 meq 11/17/20 15:11 11/17/20 16:29 Klor-Con 10 PO 11/17/20 15:12 Not Given ONETIME ONE - Radiology Interpretation Free Text/Narrative:: Chest x-ray: No new cardiopulmonary abnormality See radiologist report Departure - Departure Time of Disposition: 17:55 Disposition: Home, Self-Care 01 Clinical Impression: Hypokalemia, H. pylori infection Nausea and vomiting Qualifiers: Vomiting type: unspecified Vomiting Intractability: non-intractable Qualified Code(s): R11.2 - Nausea with vomiting, unspecified - Discharge Information *PRESCRIPTION DRUG MONITORING PROGRAM REVIEWED*: No *COPY OF PRESCRIPTION DRUG MONITORING REPORT IN PATIENT SALUD: No Instructions: Hypokalemia, Nausea and Vomiting, Adult, [id number] Referrals: Trice Montoya MD [Primary Care Provider] - Forms: ED Department Discharge Additional Instructions: Follow-up with Dr. Irvin when he returns to the office Take omeprazole 30 minutes before meals Take tetracycline and Flagyl one at a time during meal Take Pepto-Bismol once meal is completed Drink plenty of fluids Rx: Zofran/Ondansetron may take after meals to help with nausea Return to the ER with any worsening of problems Sepsis Event Note (ED) - Evaluation Sepsis Screening Result: No Definite Risk - Focused Exam Vital Signs: Vital Signs Temp Pulse Resp BP Pulse Ox 11/17/20 16:25 97.2 F 78 18 124/63 99 11/17/20 14:35 98.1 F 78 18 140/62 99 11/17/20 14:04 96.9 F 68 16 123/86 96
[2020-11-17 14:52] LABS: CHLORIDE,CL 98 mmol/L (98-107); SODIUM,NA 135 mmol/L (136-145)
[2020-11-17] MEDS ORDERED: Sodium Chloride 0.9% 1,000 ML IV ONE (14:52)
[2020-11-17] MEDS ORDERED: Ondansetron 4 MG/2 ML SDV IV ONE (14:52)
[2020-11-17] MEDS ORDERED: Potassium Chloride 10 MEQ Tab.ER PO ONE (15:11)
--- NOTE | 2020-11-17 15:19 | CR ---
EXAMINATION: Chest 2V SEX: Male AGE: 85 years CLINICAL HISTORY: 85-year-old male with crackles lung bases. Comparison exam 08 September 2020. INTERPRETATION: No new cardiopulmonary abnormality. 1. Large hiatus hernia lower middle mediastinum (air-fluid level). 2. Normal cardiac silhouette (size and configuration). No pulmonary vascular congestion, alveolar edema or dependent pleural fluid accumulation (effusion). 3. No new lung mass or hilar/mediastinal lymphadenopathy. 4. Old atelectasis/fibrosis (bronchiectasis?) Left lower lobe (LLL). 5. No new alveolar infiltrate, air bronchograms or peripheral "groundglass" interstitial lung densities. 6. No pneumothorax or pneumomediastinum. No free subdiaphragmatic air.
[2020-11-17] MEDS ORDERED: Potassium Chloride 20 MEQ in Premix Bag 1 BAG IV ONE (15:40)
[2020-11-17] MEDS ORDERED: Acetaminophen 325 MG Tab PO ONE (16:09)
== END 2020-11-17 17:40 | disposition home or self-care (01) ==
LOC: DL.ED 13:51
DX: A04.8 Other specified bacterial intestinal infections (principal); E87.6 Hypokalemia; R11.2 Nausea with vomiting, unspecified; I10 Essential (primary) hypertension; J44.9 Chronic obstructive pulmonary disease, unspecified; E11.9 Type 2 diabetes mellitus without complications; E03.9 Hypothyroidism, unspecified; Z88.8 Allergy status to other drugs, medicaments and biological substances; Z88.1 Allergy status to other antibiotic agents; Z79.899 Other long term (current) drug therapy
CPT/HCPCS: 36415; 71046; 80053; 81001; 83880; 84484; 85025; 96365; 96366; 96375; 99284; A9270; J2405; J3480; J7030

== ENCOUNTER 2020-12-09 19:41 | Emergency (ER) | payer MEDICARE, OTHER ==
--- NOTE | 2020-12-09 20:24 | EDM.PDOC ---
ED HPI GENERAL MEDICAL PROBLEM - General Chief Complaint: Genitourinary Problem Stated Complaint: KIDNEYS NOT PASSING URINE Time Seen by Provider: 12/09/20 20:15 Source of Information: Reports: Patient History Limitations: Reports: No Limitations - History of Present Illness INITIAL COMMENTS - FREE TEXT/NARRATIVE: This 85 yo male patient reports to the ED due to urinary frequency. The patient reports he had a CT and labs done at the [facility] this past week, but was not called with any results. The patient reports over the past 2 days he has noticed that he has felt like he has to urinate, but has not been able to urinate much. The patient denies any abdominal pain or abdominal pressure. The patient's reports the patient has been drinking plenty of fluids, but does not seem to be urinating the normal amounts. Onset: Unknown/Unsure Duration: Resolved Prior to Arrival Quality: Reports: Other Severity: Mild Improves with: Reports: None Worsens with: Reports: None Context: Reports: Other Associated Symptoms: Reports: No Other Symptoms - Related Data Allergies Allergy/AdvReac Type Severity Reaction Status Date / Time amitriptyline Allergy Cannot Verified 12/09/20 20:00 Remember levofloxacin [From Levaquin] Allergy Itching Verified 12/09/20 20:00 Home Meds: Home Meds Rosuvastatin Calcium [Crestor] 12.5 mg PO DAILY 02/01/18 [History] metFORMIN [Glucophage] 500 mg PO BIDMEALS 02/01/18 [History] Levothyroxine [Synthroid] 50 mcg PO ACBREAKFAST 09/08/20 [History] Losartan [Cozaar] 75 mg PO DAILY 09/08/20 [History] Potassium Chloride [Klor-Con 10] 10 meq PO ACBREAKFAST 09/08/20 [History] Bismuth Subsalicylate [Pepto-Bismol] 524 mg PO QID 11/08/20 [History] Omeprazole 20 mg PO BID 11/08/20 [History] Tetracycline HCl 500 mg PO QID 11/08/20 [History] metroNIDAZOLE [Metronidazole] 500 mg PO TID 11/08/20 [History] Past Medical History HEENT History: Reports: Cataract, Impaired Vision Cardiovascular History: Reports: Hypertension Respiratory History: Reports: Asthma, COPD Gastrointestinal History: Reports: Helicobacter Pylori Genitourinary History: Reports: Renal Calculus Musculoskeletal History: Reports: Arthritis Neurological History: Reports: None Psychiatric History: Reports: None Endocrine/Metabolic History: Reports: Diabetes, Type II, Hypothyroidism Hematologic History: Reports: B12 Deficiency Immunologic History: Reports: None Oncologic (Cancer) History: Reports: None Dermatologic History: Reports: None - Infectious Disease History Infectious Disease History: Reports: Chicken Pox, Measles, Mumps, Shingles - Past Surgical History Head Surgeries/Procedures: Reports: None HEENT Surgical History: Reports: None Cardiovascular Surgical History: Reports: None Respiratory Surgical History: Reports: None GI Surgical History: Reports: Colonoscopy, EGD, Hernia Repair/Other Endocrine Surgical History: Reports: None Neurological Surgical History: Reports: None Social & Family History - Family History Family Medical History: No Pertinent Family History - Caffeine Use Caffeine Use: Reports: Coffee Caffeine Use Comment: DECAF COFFEE - Living Situation & Occupation Living situation: Reports: , with Spouse Occupation: Retired ED ROS GENERAL - Review of Systems Review Of Systems: Comprehensive ROS is negative, except as noted in HPI. ED EXAM, RENAL/ - Physical Exam Exam: See Below General Appearance: Alert, WD/WN, Anxious, Mild Distress Eye Exam: Bilateral Eye: EOMI, Normal Inspection, PERRL Ears: Normal External Exam, Normal Canal, Hearing Grossly Normal, Normal TMs Nose: Normal Inspection, Normal Mucosa, No Blood Throat/Mouth: Normal Inspection, Normal Lips, Normal Teeth, Normal Gums, Normal Oropharynx, Normal Voice, No Airway Compromise Head: Atraumatic, Normocephalic Neck: Normal Inspection, Supple, Non-Tender, Full Range of Motion Respiratory/Chest: No Respiratory Distress, Lungs Clear, Normal Breath Sounds, No Accessory Muscle Use, Chest Non-Tender Cardiovascular: Normal Peripheral Pulses, Regular Rate, Rhythm, No Edema, No Gallop, No JVD, No Murmur, No Rub GI/Abdominal: Normal Bowel Sounds, Soft, Non-Tender, No Organomegaly, No Distention, No Abnormal Bruit, No Mass (Male) Exam: Deferred Rectal (Males) Exam: Deferred Back Exam: Normal Inspection, Full Range of Motion. No: CVA Tenderness (L), CVA Tenderness (R) Extremities: Normal Inspection, Normal Range of Motion, Non-Tender, Normal Capillary Refill, No Pedal Edema Neurological: Alert, Oriented, CN II-XII Intact, Normal Cognition, Normal Gait, Normal Reflexes, No Motor/Sensory Deficits Psychiatric: Normal Affect, Anxious Skin Exam: Warm, Dry, Intact, Normal Color, No Rash Lymphatic: No Adenopathy Course - Vital Signs Last Recorded V/S: Last Vital Signs Temp 36.2 C 12/09/20 19:56 Pulse 74 12/09/20 19:56 Resp 20 12/09/20 19:56 BP 150/115 H 12/09/20 19:56 Pulse Ox 96 12/09/20 19:56 - Orders/Labs/Meds Labs: Laboratory Tests 12/09/20 Range/Units 20:10 Urine Color Yellow (YELLOW) Urine Appearance Clear (CLEAR) Urine pH 6.5 (5.0-9.0) Ur Specific [place] 1.025 (1.005-1.030) Urine Protein Negative (NEGATIVE) Urine Glucose (UA) Negative (NEGATIVE) Urine Ketones Negative (NEGATIVE) Urine Occult Blood Negative (NEGATIVE) Urine Nitrite Negative (NEGATIVE) Urine Bilirubin Negative (NEGATIVE) Urine Urobilinogen 0.2 (0.2-1.0) mg/dL Ur Leukocyte Esterase Negative (NEGATIVE) Departure - Departure Time of Disposition: 20:28 Disposition: Home, Self-Care 01 Condition: Fair Clinical Impression: Urinary frequency - Discharge Information *PRESCRIPTION DRUG MONITORING PROGRAM REVIEWED*: Not Applicable *COPY OF PRESCRIPTION DRUG MONITORING REPORT IN PATIENT SALUD: Not Applicable Forms: ED Department Discharge Care Plan Goals: The patient and his were advised of the examination and lab results during the visit. The patient was encouraged to continue to take his medications as directed. The patient should continue to increase his oral fluid intake. If the patient has any additional symptoms or concerns, the patient should either return to the emergency department or visit his primary care facility. Sepsis Event Note (ED) - Evaluation Sepsis Screening Result: No Definite Risk - Focused Exam Vital Signs: Vital Signs Temp Pulse Resp BP Pulse Ox 12/09/20 19:56 36.2 C 74 20 150/115 H 96
== END 2020-12-09 20:39 | disposition home or self-care (01) ==
LOC: DL.ED 19:41
DX: R35.0 Frequency of micturition (principal); I10 Essential (primary) hypertension; J44.9 Chronic obstructive pulmonary disease, unspecified; E11.9 Type 2 diabetes mellitus without complications; E03.9 Hypothyroidism, unspecified; Z79.84 Long term (current) use of oral hypoglycemic drugs; Z79.899 Other long term (current) drug therapy; Z88.8 Allergy status to other drugs, medicaments and biological substances
CPT/HCPCS: 81003; 99282; 99283

== ENCOUNTER 2021-05-07 05:53 | Day surgery (SDC) | payer MEDICARE, OTHER ==
[~2021-05-07 05:53] MED LIST: Dextrose 5%-0.45% NaCl 1,000 ML IV SCH; Midazolam 1 MG/ML 2 ML SDV ONE; fentaNYL 100 MCG/2 ML SDV ONE
[2021-05-07] MEDS ORDERED: fentaNYL 100 MCG/2 ML SDV IV ONE ×3 (05:54→07:11)
[2021-05-07] MEDS ORDERED: Midazolam 1 MG/ML 2 ML SDV IV ONE ×4 (05:54→07:19)
--- NOTE | 2021-05-07 10:38 | OR ---
DATE: 05/07/2021 PROCEDURE: Total colonoscopy. INSTRUMENT USED: [id number] Olympus video colonoscope. PREMEDICATIONS: Fentanyl 100 mcg intravenous, Versed 2 mg intravenous, nasal O2 cannula. The procedure was done under pulse oximetry, BP recording, and quality assurance monitor body. INDICATION: The patient with unexplained iron-deficiency anemia. Colonoscopic examination is done for detection of any polypoid lesions and removal, endoscopic hemostasis therapy if needed. DESCRIPTION OF PROCEDURE: Initial rectal exam was unremarkable. Rigid anoscopy was normal. The colonoscope was passed with ease. Numerous scattered diverticula were noted, more so in the distal left colon along with deformity. The scope was passed with ease up to the ileocecal area. Photographs were taken of the normal-appearing cecum identified by landmarks of appendiceal orifice and double-bulged ileocecal folds. No bleeding was noted from any of the visualized areas at the commencement of the examination. The bowel preparation was found to be adequate, Granger scale 2 in right and left colon, 3 in transverse colon, total score 7. No stricture. No vascular ectasia. No large isolated ulcerations seen. No evidence of diffuse inflammatory bowel disease in the form of friability, contact bleeding, or ulcerations. No polyp or tumor mass identified. Probing the proximal sides of folds and flexures using adequate distention and clearing up the stool material, withdrawal of the scope was made, cecum to rectum time over 6 minutes. No bleeding was noted from any of the visualized areas at the completion of examination. IMPRESSION: Diverticulosis. The patient tolerated the procedure well. [facility] /[id number]
== END 2021-05-07 09:41 | disposition home or self-care (01) ==
LOC: DL.ENDO 05:53
PROVIDERS: ATTEND Internal Medicine Gastroenterology
DX: K57.30 Diverticulosis of large intestine without perforation or abscess without bleeding (principal); D50.9 Iron deficiency anemia, unspecified; E11.9 Type 2 diabetes mellitus without complications; I10 Essential (primary) hypertension; E78.5 Hyperlipidemia, unspecified; E03.9 Hypothyroidism, unspecified; K21.9 Gastro-esophageal reflux disease without esophagitis; E53.8 Deficiency of other specified B group vitamins; J45.909 Unspecified asthma, uncomplicated; H91.90 Unspecified hearing loss, unspecified ear; Z86.73 Personal history of transient ischemic attack (TIA), and cerebral infarction without residual deficits; Z88.8 Allergy status to other drugs, medicaments and biological substances; Z79.899 Other long term (current) drug therapy
CPT/HCPCS: 45378; J2250; J3010; J7042

== ENCOUNTER 2021-09-12 08:44 | Day surgery (SDC) | payer MEDICARE, OTHER ==
[2021-09-12] MEDS ORDERED: Midazolam 1 MG/ML 2 ML SDV IV ONE (08:45)
[2021-09-12] MEDS ORDERED: Dexamethasone 4 MG/ML SDV IV ONE (08:45)
[2021-09-12] MEDS ORDERED: Sodium Chloride 0.9% 10 ML Syringe IV ONE (08:45)
[2021-09-12] MEDS ORDERED: Acetaminophen 325 MG Tab PO PRN (09:00)
[2021-09-12] MEDS ORDERED: Timolol Maleate 0.5% Ophth Soln 5 ML Bottle EYELF ONE (09:00)
[2021-09-12] MEDS ORDERED: Proparacaine 0.5% Ophth Soln 15 ML Bottle EYELF ONE (09:00)
[2021-09-12] MEDS ORDERED: Ondansetron 4 MG/2 ML SDV IVPUSH PRN (09:00)
[2021-09-12] MEDS ORDERED: Sodium Chloride 0.9% 10 ML Syringe FLUSH PRN (09:00)
[2021-09-12] MEDS ORDERED: Moxifloxacin 0.5% Ophth Soln 3 ML Bottle EYELF ONE (09:00)
[2021-09-12] MEDS ORDERED: Povidone-Iodine 5% Sterile Ophth Soln 30 ML Bottle EYELF ONE ×2 (09:00→10:16)
[2021-09-12] MEDS ORDERED: Cataract Ophth Solution EYELF ONE (09:00)
[2021-09-12] MEDS ORDERED: Tropicamide 1% Ophth Soln 15 ML Bottle EYELF ONE (09:00)
[2021-09-12] MEDS ORDERED: Tobramycin 0.3% Ophth Drops 5 ML Bottle EYELF SCH (09:00)
[2021-09-12] MEDS ORDERED: Phenylephrine 10% Ophth Soln 5 ML Bot EYELF ONE (09:00)
[2021-09-12] MEDS ORDERED: Lidocaine 1% 30 ML SDV ONE (10:14)
[2021-09-12] MEDS ORDERED: Tetracaine HCl/PF 0.5% 4 ML Bottle EYELF ONE (10:14)
[2021-09-12] MEDS ORDERED: Apraclonidine 0.5% Ophth Soln 5 ML Bot EYELF ONE (10:16)
[2021-09-12] MEDS ORDERED: Diclofenac Sodium 0.1% Ophth Soln 5 ML Bottle EYELF ONE (10:16)
[2021-09-12] MEDS ORDERED: Dexamethasone/Neomycin/Polymyxin B Ophth Oint 3.5 GM Tube EYELF ONE (10:16)
[2021-09-12] MEDS ORDERED: Chondroitin Sulfate/Hyaluronate Sodium Ophth Inj 0.75 ML Syringe EYELF ONE (10:17)
[2021-09-12] MEDS ORDERED: Balanced Salt Solution Ophth Irrig 500 ML Bottle IOCULAR ONE (10:17)
[2021-09-12] MEDS ORDERED: Vancomycin 500 MG SDV EYELF ONE (10:17)
--- NOTE | 2021-09-13 08:39 | OR ---
DATE: 09/12/2021 PREOPERATIVE DIAGNOSIS: Visually significant mixed cataract, left eye. POSTOPERATIVE DIAGNOSIS: Visually significant mixed cataract, left eye. PROCEDURE: Extracapsular cataract extraction with intraocular lens implant, left eye. ANESTHESIA: Topical/local MAC. COMPLICATIONS: None. INDICATION: Mr. Cullen was seen in the clinic. He is unhappy with his vision noticing a slow progressive change. He has difficulty with multiple activities of daily living. He saw his regular center medical and lab director, Dr. Jones. Dr. Jones was not able to improve his vision and meet his visual needs with a change in glasses. I have explained options, offered cataract surgery, and I explained risks including the potential for infection, retinal detachment, loss of vision, need for additional surgery, amongst others. We have discussed implant options. He has requested a monofocal implant. He is comfortable wearing glasses following surgery if necessary. OPERATIVE DESCRIPTION: After informed consent was obtained and the risks, benefits, and alternatives were explained, the patient was brought to the operative suite and topical anesthesia was administered. The patient was then prepped and draped in the sterile fashion and attention was placed on the left eye. A sterile lid speculum was placed into the left eye to allow operative exposure. A full-thickness paracentesis was made in the temporal portion of the operative eye. Preservative-free lidocaine 0.1 mL was injected into the anterior chamber followed by viscoelastic. A full-thickness corneal incision was then made into the anterior chamber. A bent needle cystotome was used to create a small florian in the anterior capsule. The capsulorrhexis forceps was then used to create a 360-degree curvilinear capsulorrhexis. The nucleus was then removed using a phacoemulsification handpiece and the remaining cortical material was then removed with irrigation and aspiration handpiece. Following removal of the cortical material, the capsular bag was then inspected and noted to be free of any holes or tears. Viscoelastic was then injected into the capsular bag and the intraocular lens was inserted into the capsular bag. The viscoelastic material was then removed from both the anterior and posterior chambers and from behind the IOL. The lens and capsular bag were then reinspected. The IOL was well centered and the capsular bag intact. The wound and paracentesis sites were inspected and hydrated with balanced saline solution. Both were found to be self- sealing. The intraocular pressure was assessed digitally and found to be within normal range. A good red reflex was noted at the completion of the procedure. No complications occurred during the operation. At the completion of the procedure, Maxitrol, Voltaren, and Iopidine drops were placed into the operative eye. A sterile eye shield was placed over the operative eye and the patient was transported to the postoperative recovery area having tolerated the procedure well. Postoperative instructions were given along with a postoperative appointment. The patient was advised to call with any questions or concerns. [facility] /[id number]
== END 2021-09-12 11:30 | disposition home or self-care (01) ==
LOC: DL.SDS 08:44
PROVIDERS: ATTEND Ophthalmology
DX: E11.36 Type 2 diabetes mellitus with diabetic cataract (principal); H26.8 Other specified cataract; I10 Essential (primary) hypertension; E78.5 Hyperlipidemia, unspecified; E03.9 Hypothyroidism, unspecified; K21.9 Gastro-esophageal reflux disease without esophagitis; J45.909 Unspecified asthma, uncomplicated; D64.9 Anemia, unspecified; E53.8 Deficiency of other specified B group vitamins; F41.1 Generalized anxiety disorder; E61.1 Iron deficiency; Z88.8 Allergy status to other drugs, medicaments and biological substances; Z86.73 Personal history of transient ischemic attack (TIA), and cerebral infarction without residual deficits
CPT/HCPCS: A9270-GY; J1100; J2250; J3370; V2632

== ENCOUNTER 2021-09-19 07:32 | Day surgery (SDC) | payer MEDICARE, OTHER ==
[2021-09-19] MEDS ORDERED: Midazolam 1 MG/ML 2 ML SDV IV ONE (07:33)
[2021-09-19] MEDS ORDERED: Sodium Chloride 0.9% 10 ML Syringe IV ONE (07:33)
[2021-09-19] MEDS ORDERED: Dexamethasone 4 MG/ML SDV IV ONE (07:33)
[2021-09-19] MEDS ORDERED: Acetaminophen/Codeine 300-30 MG Tab PO PRN (08:00)
[2021-09-19] MEDS ORDERED: Acetaminophen 325 MG Tab PO PRN (08:00)
[2021-09-19] MEDS ORDERED: Cataract Ophth Solution EYERT ONE (08:00)
[2021-09-19] MEDS ORDERED: Ondansetron 4 MG/2 ML SDV IVPUSH PRN (08:00)
[2021-09-19] MEDS ORDERED: Timolol Maleate 0.5% Ophth Soln 5 ML Bottle EYERT ONE (08:00)
[2021-09-19] MEDS ORDERED: Povidone-Iodine 5% Sterile Ophth Soln 30 ML Bottle EYERT ONE ×2 (08:00→09:12)
[2021-09-19] MEDS ORDERED: Moxifloxacin 0.5% Ophth Soln 3 ML Bottle EYERT ONE (08:00)
[2021-09-19] MEDS ORDERED: Tobramycin 0.3% Ophth Drops 5 ML Bottle EYERT SCH (08:00)
[2021-09-19] MEDS ORDERED: Phenylephrine 10% Ophth Soln 5 ML Bot EYERT ONE (08:00)
[2021-09-19] MEDS ORDERED: Tropicamide 1% Ophth Soln 15 ML Bottle EYERT ONE (08:00)
[2021-09-19] MEDS ORDERED: Proparacaine 0.5% Ophth Soln 15 ML Bottle EYERT ONE (08:00)
[2021-09-19] MEDS ORDERED: Tetracaine HCl/PF 0.5% 4 ML Bottle EYERT ONE (09:11)
[2021-09-19] MEDS ORDERED: Lidocaine 1% 30 ML SDV ONE (09:12)
[2021-09-19] MEDS ORDERED: Apraclonidine 0.5% Ophth Soln 5 ML Bot EYERT ONE (09:12)
[2021-09-19] MEDS ORDERED: Diclofenac Sodium 0.1% Ophth Soln 5 ML Bottle EYERT ONE (09:13)
[2021-09-19] MEDS ORDERED: Dexamethasone/Neomycin/Polymyxin B Ophth Oint 3.5 GM Tube EYERT ONE (09:13)
[2021-09-19] MEDS ORDERED: Balanced Salt Solution Ophth Irrig 500 ML Bottle IOCULAR ONE (09:14)
[2021-09-19] MEDS ORDERED: Chondroitin Sulfate/Hyaluronate Sodium Ophth Inj 0.75 ML Syringe EYERT ONE (09:14)
[2021-09-19] MEDS ORDERED: Vancomycin 500 MG SDV EYERT ONE (09:14)
--- NOTE | 2021-09-19 14:08 | OR ---
DATE: 09/19/2021 PREOPERATIVE DIAGNOSIS: Visually significant mixed cataract, right eye. POSTOPERATIVE DIAGNOSIS: Visually significant mixed cataract, right eye. PROCEDURE: Extracapsular cataract extraction with intraocular lens implant, right eye. ANESTHESIA: Topical/local MAC. COMPLICATIONS: None. INDICATION: Mr. Cullen was seen in the clinic with complaints of blurred vision. The examination revealed visually significant mixed cataract. I explained options, offered cataract surgery, and I explained risks including the potential for infection, retinal detachment, loss of vision, need for additional surgery, amongst others. He did see his regular manager operations, Dr. Jones. Dr. Jones was not able to improve his vision and meet his visual needs with a change in glasses. We have discussed implant options. He has requested a monofocal implant. He is comfortable wearing glasses following surgery if necessary. OPERATIVE DESCRIPTION: After informed consent was obtained and the risks, benefits, and alternatives were explained, the patient was brought to the operative suite and topical anesthesia was administered. The patient was then prepped and draped in the sterile fashion and attention was placed on the right eye. A sterile lid speculum was placed into the right eye to allow operative exposure. A full-thickness paracentesis was made in the temporal portion of the operative eye. Preservative-free lidocaine 0.1 mL was injected into the anterior chamber followed by viscoelastic. A full-thickness corneal incision was then made into the anterior chamber. A bent needle cystotome was used to create a small florian in the anterior capsule. The capsulorrhexis forceps was then used to create a 360-degree curvilinear capsulorrhexis. The nucleus was then removed using a phacoemulsification handpiece and the remaining cortical material was then removed with irrigation and aspiration handpiece. Following removal of the cortical material, the capsular bag was then inspected and noted to be free of any holes or tears. Viscoelastic was then injected into the capsular bag and the intraocular lens was inserted into the capsular bag. The viscoelastic material was then removed from both the anterior and posterior chambers and from behind the IOL. The lens and capsular bag were then reinspected. The IOL was well centered and the capsular bag intact. The wound and paracentesis sites were inspected and hydrated with balanced saline solution. Both were found to be self- sealing. The intraocular pressure was assessed digitally and found to be within normal range. A good red reflex was noted at the completion of the procedure. No complications occurred during the operation. At the completion of the procedure, Maxitrol, Voltaren, and Iopidine drops were placed into the operative eye. A sterile eye shield was placed over the operative eye and the patient was transported to the postoperative recovery area having tolerated the procedure well. Postoperative instructions were given along with a postoperative appointment. The patient was advised to call with any questions or concerns. [facility] /[id number]
== END 2021-09-19 10:24 | disposition home or self-care (01) ==
LOC: DL.SDS 07:32
PROVIDERS: ATTEND Ophthalmology
DX: E11.36 Type 2 diabetes mellitus with diabetic cataract (principal); H26.8 Other specified cataract; E03.9 Hypothyroidism, unspecified; I10 Essential (primary) hypertension; E78.5 Hyperlipidemia, unspecified; J45.909 Unspecified asthma, uncomplicated; K21.9 Gastro-esophageal reflux disease without esophagitis; D64.9 Anemia, unspecified; E53.8 Deficiency of other specified B group vitamins; Z88.8 Allergy status to other drugs, medicaments and biological substances; Z86.73 Personal history of transient ischemic attack (TIA), and cerebral infarction without residual deficits; Z79.899 Other long term (current) drug therapy; Z79.890 Hormone replacement therapy
CPT/HCPCS: 00142; A9270-GY; J1100; J2250; J3370; V2632

== ENCOUNTER 2022-08-18 15:43 | Emergency (ER) | payer MEDICARE, OTHER ==
[2022-08-18 16:38] LABS: ANION GAP 16.3 mEq/L (7-13)
== END 2022-08-18 17:40 | disposition home or self-care (01) ==
LOC: DL.ED 15:43
DX: R53.1 Weakness (principal); I25.10 Atherosclerotic heart disease of native coronary artery without angina pectoris; E78.00 Pure hypercholesterolemia, unspecified; I10 Essential (primary) hypertension; E11.9 Type 2 diabetes mellitus without complications; Z88.1 Allergy status to other antibiotic agents; Z79.84 Long term (current) use of oral hypoglycemic drugs; Z79.899 Other long term (current) drug therapy; Z79.82 Long term (current) use of aspirin
CPT/HCPCS: 36415; 71046; 80053; 81001; 83605; 84484; 85025; 85610; 87040; 93005; 99285

== ENCOUNTER 2022-08-19 16:27 | Inpatient (IN) | payer MEDICARE, OTHER ==
[2022-08-19 17:44] LABS: ANION GAP 11.1 mEq/L (7-13); CHLORIDE,CL 92 mmol/L (98-107); SODIUM,NA 123 mmol/L (136-145)
[2022-08-19 17:46] LABS: ESTIMATED GFR 77 mL/min (>=60)
[2022-08-19] MEDS ORDERED: Iopamidol 612 MG/ML 100 ML Bottle IVPUSH ONE (18:40)
[2022-08-19] MEDS ORDERED: Polyethylene Glycol 3350 Powder 17 GM Packet PO PRN (21:00)
[2022-08-19] MEDS ORDERED: HYDROmorphone 0.5 MG/0.5 ML Syringe IVPUSH PRN (21:00)
[2022-08-19] MEDS ORDERED: Albuterol/Ipratropium 3.0-0.5 MG/3 ML Neb Soln NEB PRN (21:00)
[2022-08-19] MEDS ORDERED: Magnesium Hydroxide 400 MG/5 ML Susp 30 ML Cup PO PRN (21:00)
[2022-08-19] MEDS ORDERED: Ondansetron 4 MG/2 ML SDV IVPUSH PRN (21:00)
[2022-08-19] MEDS ORDERED: Acetaminophen 325 MG Tab PO PRN (21:00)
[2022-08-19] MEDS ORDERED: Sodium Chloride 0.9% 10 ML Syringe FLUSH PRN (21:00)
[2022-08-19] MEDS ORDERED: Potassium Chloride 10 MEQ Tab.ER PO ONE (21:04)
[2022-08-19] MEDS ORDERED: Sodium Chloride 0.9% 1,000 ML IV SCH (21:15)
[2022-08-19] MEDS: Sodium Chloride 0.9% 10 ML Syringe FLUSH SCH (21:30)
[2022-08-19] MEDS ORDERED: Temazepam 15 MG Cap PO PRN (22:03)
[2022-08-19] MEDS ORDERED: Flumazenil 0.1 MG/ML 5 ML MDV IVPUSH PRN (22:05)
[2022-08-19] MEDS ORDERED: Pantoprazole 40 MG Vial IVPUSH ONE (22:06)
[2022-08-19] MEDS ORDERED: Tamsulosin 0.4 MG Cap.ER PO ONE (22:11)
[2022-08-19] MEDS ORDERED: Non-Formulary Medication 1 Each (Budesonide [Pulmicort Flexhaler] 180 MCG Inhaler) INH PRN (22:12)
[2022-08-19] MEDS ORDERED: hydrALAZINE 20 MG/ML SDV IVPUSH PRN (22:13)
[2022-08-19] MEDS ORDERED: Metoprolol Tartrate 5 MG/5 ML SDV IVPUSH PRN (22:14)
[2022-08-19] MEDS ORDERED: LORazepam 2 MG/ML SDV IVPUSH SCH (22:15)
[2022-08-19] MEDS ORDERED: Lidocaine 2% Jelly 10 ML Urojet MUCMEM ONE (22:24)
[2022-08-19] MEDS: Acetaminophen/HYDROcodone 325-5 MG Tab PO PRN (22:48)
[2022-08-19] MEDS: Melatonin 3 MG Tab PO PRN (22:50)
[2022-08-19] MEDS: Finasteride 5 MG Tab PO SCH (22:51)
[2022-08-19] MEDS ORDERED: metFORMIN 500 MG Tab PO SCH (23:00)
[2022-08-20] MEDS: Pantoprazole 40 MG Tab.CR PO SCH ×2 (05:26→17:23)
[2022-08-20] MEDS: Levothyroxine 75 MCG Tab PO SCH (05:26)
[2022-08-20 07:36] LABS: ANION GAP 12.5 mEq/L (7-13)
[2022-08-20] MEDS: metFORMIN 500 MG Tab PO SCH ×3 (08:30→17:23)
[2022-08-20] MEDS: Acetaminophen/HYDROcodone 325-5 MG Tab PO PRN ×3 (08:30→20:46)
[2022-08-20] MEDS: Tamsulosin 0.4 MG Cap.ER PO SCH (08:31)
[2022-08-20] MEDS: Sodium Chloride 0.9% 10 ML Syringe FLUSH SCH ×2 (08:31→20:47)
[2022-08-20] MEDS ORDERED: Magnesium Sulfate/Water 2 GM in Premix Bag 1 BAG IV ONE (08:36)
[2022-08-20] MEDS: Finasteride 5 MG Tab PO SCH (20:46)
[2022-08-20] MEDS: Melatonin 3 MG Tab PO PRN (20:46)
[2022-08-20] MEDS: Lidocaine 5% 700 MG Patch TOP PRN (20:47)
[2022-08-20] MEDS ORDERED: Finasteride 5 MG Tab PO SCH (21:00)
[2022-08-21] MEDS: Acetaminophen/HYDROcodone 325-5 MG Tab PO PRN ×2 (03:27→08:06)
[2022-08-21] MEDS: Levothyroxine 75 MCG Tab PO SCH (05:54)
[2022-08-21] MEDS: Pantoprazole 40 MG Tab.CR PO SCH ×2 (05:54→15:58)
[2022-08-21] MEDS: Tamsulosin 0.4 MG Cap.ER PO SCH (08:07)
[2022-08-21] MEDS: metFORMIN 500 MG Tab PO SCH ×3 (08:08→17:22)
[2022-08-21] MEDS: Sodium Chloride 0.9% 10 ML Syringe FLUSH SCH ×3 (08:12→21:16)
[2022-08-21] MEDS ORDERED: traMADol 50 MG Tab PO PRN (09:46)
[2022-08-21] MEDS ORDERED: Magnesium Sulfate/Water 2 GM in Premix Bag 1 BAG IV ONE (10:15)
[2022-08-21] MEDS: traMADol 50 MG Tab PO SCH ×2 (10:38→20:28)
[2022-08-21] MEDS: Ferrous Sulfate 325 MG Tab PO SCH (17:21)
[2022-08-21] MEDS: Lidocaine 5% 700 MG Patch TOP PRN (20:26)
[2022-08-21] MEDS: Finasteride 5 MG Tab PO SCH (20:28)
[2022-08-21] MEDS: Melatonin 3 MG Tab PO PRN (20:28)
[2022-08-21] MEDS: Rosuvastatin 10 MG Tab PO SCH (20:28)
[2022-08-21] MEDS ORDERED: QUEtiapine 25 MG Tab PO SCH (21:00)
[2022-08-22] MEDS: Levothyroxine 75 MCG Tab PO SCH (06:32)
[2022-08-22] MEDS: Pantoprazole 40 MG Tab.CR PO SCH ×2 (06:32→17:01)
[2022-08-22] MEDS: Ferrous Sulfate 325 MG Tab PO SCH ×2 (09:37→17:01)
[2022-08-22] MEDS: metFORMIN 500 MG Tab PO SCH ×3 (09:37→17:02)
[2022-08-22] MEDS: Tamsulosin 0.4 MG Cap.ER PO SCH (09:37)
[2022-08-22] MEDS: Sodium Chloride 0.9% 10 ML Syringe FLUSH SCH ×2 (09:38→20:59)
[2022-08-22] MEDS: Magnesium Sulfate/Water 2 GM in Premix Bag 1 BAG IV SCH ×2 (09:42→20:59)
[2022-08-22] MEDS: Ergocalciferol (Vitamin D2) 1.25 MG Cap PO SCH (09:44)
[2022-08-22] MEDS: traMADol 50 MG Tab PO SCH (09:46)
[2022-08-22] MEDS: Acetaminophen 325 MG Tab PO PRN ×2 (10:54→20:54)
[2022-08-22] MEDS ORDERED: Melatonin 3 MG Tab PO PRN (13:27)
[2022-08-22] MEDS: Lidocaine 5% 700 MG Patch TOP PRN (20:50)
[2022-08-22] MEDS: Finasteride 5 MG Tab PO SCH (20:54)
[2022-08-22] MEDS: Rosuvastatin 10 MG Tab PO SCH (20:54)
[2022-08-23] MEDS: Acetaminophen 325 MG Tab PO PRN ×2 (04:23→20:47)
[2022-08-23] MEDS: Pantoprazole 40 MG Tab.CR PO SCH ×3 (04:24→17:16)
[2022-08-23] MEDS: Levothyroxine 75 MCG Tab PO SCH ×2 (04:24→05:12)
[2022-08-23 06:17] LABS: ANION GAP 11.8 mEq/L (7-13)
[2022-08-23] MEDS: Tamsulosin 0.4 MG Cap.ER PO SCH (08:28)
[2022-08-23] MEDS: metFORMIN 500 MG Tab PO SCH ×3 (08:29→17:16)
[2022-08-23] MEDS: Ferrous Sulfate 325 MG Tab PO SCH ×2 (08:29→17:16)
[2022-08-23] MEDS: Sodium Chloride 0.9% 10 ML Syringe FLUSH SCH ×2 (08:30→20:50)
[2022-08-23] MEDS: Rosuvastatin 10 MG Tab PO SCH (20:46)
[2022-08-23] MEDS: Finasteride 5 MG Tab PO SCH (20:46)
[2022-08-23] MEDS: Lidocaine 5% 700 MG Patch TOP SCH (20:46)
[2022-08-24] MEDS: Levothyroxine 75 MCG Tab PO SCH (05:05)
[2022-08-24] MEDS: Pantoprazole 40 MG Tab.CR PO SCH ×2 (05:06→16:21)
[2022-08-24] MEDS: Acetaminophen 325 MG Tab PO PRN ×2 (08:25→21:00)
[2022-08-24] MEDS: Tamsulosin 0.4 MG Cap.ER PO SCH (08:25)
[2022-08-24] MEDS: metFORMIN 500 MG Tab PO SCH ×3 (08:26→17:37)
[2022-08-24] MEDS: Ferrous Sulfate 325 MG Tab PO SCH ×2 (08:27→17:38)
[2022-08-24] MEDS: Sodium Chloride 0.9% 10 ML Syringe FLUSH SCH ×2 (08:27→20:49)
[2022-08-24] MEDS: Finasteride 5 MG Tab PO SCH (20:48)
[2022-08-24] MEDS: Lidocaine 5% 700 MG Patch TOP SCH (20:48)
[2022-08-24] MEDS: Rosuvastatin 10 MG Tab PO SCH (20:48)
[2022-08-25] MEDS: Pantoprazole 40 MG Tab.CR PO SCH ×2 (06:19→16:31)
[2022-08-25] MEDS: Levothyroxine 75 MCG Tab PO SCH (06:19)
[2022-08-25] MEDS: Acetaminophen 325 MG Tab PO PRN ×3 (08:40→20:06)
[2022-08-25] MEDS: Ferrous Sulfate 325 MG Tab PO SCH ×2 (08:41→17:47)
[2022-08-25] MEDS: metFORMIN 500 MG Tab PO SCH ×3 (08:41→17:46)
[2022-08-25] MEDS: Tamsulosin 0.4 MG Cap.ER PO SCH (08:41)
[2022-08-25] MEDS: Sodium Chloride 0.9% 10 ML Syringe FLUSH SCH ×2 (08:42→20:09)
[2022-08-25] MEDS: Lidocaine 5% 700 MG Patch TOP SCH (20:05)
[2022-08-25] MEDS: Finasteride 5 MG Tab PO SCH (20:06)
[2022-08-25] MEDS: Rosuvastatin 10 MG Tab PO SCH (20:07)
[2022-08-26] MEDS: Acetaminophen 325 MG Tab PO PRN ×4 (03:18→23:16)
[2022-08-26] MEDS: Levothyroxine 75 MCG Tab PO SCH (05:31)
[2022-08-26] MEDS: Pantoprazole 40 MG Tab.CR PO SCH ×2 (05:31→17:24)
[2022-08-26 07:13] LABS: ANION GAP 12.1 mEq/L (7-13)
[2022-08-26] MEDS: metFORMIN 500 MG Tab PO SCH ×3 (08:23→17:24)
[2022-08-26] MEDS: Tamsulosin 0.4 MG Cap.ER PO SCH (08:23)
[2022-08-26] MEDS: Ferrous Sulfate 325 MG Tab PO SCH ×2 (08:23→17:24)
[2022-08-26] MEDS: Sodium Chloride 0.9% 10 ML Syringe FLUSH SCH ×2 (08:23→20:43)
[2022-08-26] MEDS ORDERED: Magnesium Sulfate/Water 2 GM in Premix Bag 1 BAG IV ONE (16:00)
[2022-08-26] MEDS: Lidocaine 5% 700 MG Patch TOP SCH (20:42)
[2022-08-26] MEDS: Finasteride 5 MG Tab PO SCH (20:42)
[2022-08-26] MEDS: Rosuvastatin 10 MG Tab PO SCH (20:42)
[2022-08-27] MEDS: Levothyroxine 75 MCG Tab PO SCH (06:28)
[2022-08-27] MEDS: Pantoprazole 40 MG Tab.CR PO SCH ×2 (06:28→17:48)
[2022-08-27] MEDS: Acetaminophen 325 MG Tab PO PRN ×2 (06:38→20:30)
[2022-08-27] MEDS: metFORMIN 500 MG Tab PO SCH ×3 (10:08→17:48)
[2022-08-27] MEDS: Tamsulosin 0.4 MG Cap.ER PO SCH (10:09)
[2022-08-27] MEDS: Ferrous Sulfate 325 MG Tab PO SCH ×2 (10:09→17:48)
[2022-08-27] MEDS: Sodium Chloride 0.9% 10 ML Syringe FLUSH SCH ×2 (10:10→20:30)
[2022-08-27] MEDS: Lidocaine 5% 700 MG Patch TOP SCH (20:29)
[2022-08-27] MEDS: Finasteride 5 MG Tab PO SCH (20:30)
[2022-08-27] MEDS: Rosuvastatin 10 MG Tab PO SCH (20:30)
[2022-08-28] MEDS: Pantoprazole 40 MG Tab.CR PO SCH ×2 (06:16→17:19)
[2022-08-28] MEDS: Levothyroxine 75 MCG Tab PO SCH (06:16)
[2022-08-28] MEDS: metFORMIN 500 MG Tab PO SCH ×3 (09:37→17:18)
[2022-08-28] MEDS: Ferrous Sulfate 325 MG Tab PO SCH ×2 (09:37→17:19)
[2022-08-28] MEDS: Tamsulosin 0.4 MG Cap.ER PO SCH (09:37)
[2022-08-28] MEDS: Sodium Chloride 0.9% 10 ML Syringe FLUSH SCH ×2 (09:38→21:14)
[2022-08-28] MEDS: Rosuvastatin 10 MG Tab PO SCH (21:11)
[2022-08-28] MEDS: Lidocaine 5% 700 MG Patch TOP SCH (21:11)
[2022-08-28] MEDS: Finasteride 5 MG Tab PO SCH (21:11)
[2022-08-28] MEDS: Acetaminophen 325 MG Tab PO PRN (21:12)
[2022-08-29] MEDS: Levothyroxine 75 MCG Tab PO SCH (06:13)
[2022-08-29] MEDS: Pantoprazole 40 MG Tab.CR PO SCH ×2 (06:13→17:52)
[2022-08-29] MEDS: metFORMIN 500 MG Tab PO SCH ×3 (08:29→17:51)
[2022-08-29] MEDS: Acetaminophen 325 MG Tab PO PRN ×2 (08:29→20:49)
[2022-08-29] MEDS: Tamsulosin 0.4 MG Cap.ER PO SCH (08:30)
[2022-08-29] MEDS: Sodium Chloride 0.9% 10 ML Syringe FLUSH SCH ×2 (08:30→20:51)
[2022-08-29] MEDS: Ferrous Sulfate 325 MG Tab PO SCH ×2 (08:30→17:52)
[2022-08-29] MEDS: Ergocalciferol (Vitamin D2) 1.25 MG Cap PO SCH (08:35)
[2022-08-29] MEDS: Finasteride 5 MG Tab PO SCH (20:49)
[2022-08-29] MEDS: Rosuvastatin 10 MG Tab PO SCH (20:49)
[2022-08-29] MEDS: Lidocaine 5% 700 MG Patch TOP SCH (20:50)
[2022-08-30] MEDS: Pantoprazole 40 MG Tab.CR PO SCH (06:08)
[2022-08-30] MEDS: Acetaminophen 325 MG Tab PO PRN (06:08)
[2022-08-30] MEDS: Levothyroxine 75 MCG Tab PO SCH (06:08)
[2022-08-30] MEDS: Tamsulosin 0.4 MG Cap.ER PO SCH (08:03)
[2022-08-30] MEDS: metFORMIN 500 MG Tab PO SCH (08:03)
[2022-08-30] MEDS: Ferrous Sulfate 325 MG Tab PO SCH (08:04)
[2022-08-30] MEDS: Sodium Chloride 0.9% 10 ML Syringe FLUSH SCH (08:06)
== END 2022-08-30 08:50 | disposition other institution (70) | DRG 641 ==
LOC: DL.ED 16:27 → DL.MS 20:32
PROVIDERS: ADMIT Internal Medicine; ATTEND Internal Medicine
DX: E87.1 Hypo-osmolality and hyponatremia (principal); S22.080A Wedge compression fracture of T11-T12 vertebra, initial encounter for closed fracture; N40.1 Benign prostatic hyperplasia with lower urinary tract symptoms; R53.1 Weakness; I48.91 Unspecified atrial fibrillation; R33.8 Other retention of urine; N20.0 Calculus of kidney; K44.9 Diaphragmatic hernia without obstruction or gangrene; K80.20 Calculus of gallbladder without cholecystitis without obstruction; E11.65 Type 2 diabetes mellitus with hyperglycemia; E88.09 Other disorders of plasma-protein metabolism, not elsewhere classified; E55.9 Vitamin D deficiency, unspecified; E11.9 Type 2 diabetes mellitus without complications; I71.42 Juxtarenal abdominal aortic aneurysm, without rupture; I72.3 Aneurysm of iliac artery; F41.9 Anxiety disorder, unspecified; R31.9 Hematuria, unspecified; E87.6 Hypokalemia; E87.8 Other disorders of electrolyte and fluid balance, not elsewhere classified; E83.42 Hypomagnesemia; H54.7 Unspecified visual loss; H91.90 Unspecified hearing loss, unspecified ear; I10 Essential (primary) hypertension; E78.5 Hyperlipidemia, unspecified; I25.10 Atherosclerotic heart disease of native coronary artery without angina pectoris; J44.9 Chronic obstructive pulmonary disease, unspecified; I48.0 Paroxysmal atrial fibrillation; E03.9 Hypothyroidism, unspecified; K59.09 Other constipation; K21.9 Gastro-esophageal reflux disease without esophagitis; D50.9 Iron deficiency anemia, unspecified; E53.8 Deficiency of other specified B group vitamins; G89.29 Other chronic pain; M19.90 Unspecified osteoarthritis, unspecified site; R74.8 Abnormal levels of other serum enzymes; R31.0 Gross hematuria; E78.00 Pure hypercholesterolemia, unspecified; Z88.1 Allergy status to other antibiotic agents; Z86.73 Personal history of transient ischemic attack (TIA), and cerebral infarction without residual deficits; M54.9 Dorsalgia, unspecified; Z88.8 Allergy status to other drugs, medicaments and biological substances; Z79.84 Long term (current) use of oral hypoglycemic drugs; Z79.899 Other long term (current) drug therapy; Z28.9 Immunization not carried out for unspecified reason; Z79.82 Long term (current) use of aspirin; Z79.890 Hormone replacement therapy; Z79.51 Long term (current) use of inhaled steroids; Z79.52 Long term (current) use of systemic steroids; X58.XXXA Exposure to other specified factors, initial encounter
CPT/HCPCS: 36415; 74178; 80053; 81001; 83605; 85025; 85610; 87040; 99285; Q9967; 51702; 80048; 82306; 83735; 84439; 84443; 93005; 93010; 97110-GO; 97110-GP; 97116-GP; 97129-GO; 97161-GP; 97165-GO; 97530-GO; 97530-GP; 97535-GO; 99222; 99232; 99238; A9270-GY; C9113; J2060; J3475; J3490; J7030; J7620-GY

== ENCOUNTER 2022-11-19 07:39 | Emergency (ER) | payer MEDICARE, OTHER ==
[2022-11-19] MEDS ORDERED: Albuterol/Ipratropium 3.0-0.5 MG/3 ML Neb Soln NEB ONE (08:28)
[2022-11-19] MEDS ORDERED: methylPREDNISolone Sodium Succinate 125 MG/2 ML SDV IVPUSH ONE (08:28)
[2022-11-19] MEDS ORDERED: Sodium Chloride 0.9% 10 ML Syringe FLUSH PRN (08:29)
[2022-11-19 09:06] LABS: RESPIRATORY SYNCYTIAL VIR NAA NEGATIVE (NEGATIVE)
[2022-11-19 09:09] LABS: CORONAVIRUS COVID-19 NAA POSITIVE (NEGATIVE)
[2022-11-19 09:11] LABS: ANION GAP 17.1 mEq/L (7-13); CHLORIDE,CL 103 mmol/L (98-107); ESTIMATED GFR 66 mL/min (>=60); SODIUM,NA 138 mmol/L (136-145)
[2022-11-19] MEDS ORDERED: cefTRIAXone 1 GM Vial IVPUSH ONE (09:14)
== END 2022-11-19 09:50 | disposition home or self-care (01) ==
LOC: DL.ED 07:39
DX: U07.1 COVID-19 (principal); J44.1 Chronic obstructive pulmonary disease with (acute) exacerbation; E78.00 Pure hypercholesterolemia, unspecified; I10 Essential (primary) hypertension; I48.91 Unspecified atrial fibrillation; I25.10 Atherosclerotic heart disease of native coronary artery without angina pectoris; E03.9 Hypothyroidism, unspecified; E11.9 Type 2 diabetes mellitus without complications; K21.9 Gastro-esophageal reflux disease without esophagitis; Z86.73 Personal history of transient ischemic attack (TIA), and cerebral infarction without residual deficits; Z88.1 Allergy status to other antibiotic agents; Z88.8 Allergy status to other drugs, medicaments and biological substances; Z79.84 Long term (current) use of oral hypoglycemic drugs; Z79.899 Other long term (current) drug therapy; Z87.891 Personal history of nicotine dependence
CPT/HCPCS: 0241U; 36415; 71045; 80053; 83880; 84484; 85025; 96374; 96375; 99284; 99285; J0696; J2930; J3490; J7620-GY

== ENCOUNTER 2023-07-22 05:03 | Emergency (ER) | payer MEDICARE, OTHER ==
[2023-07-22 05:31] LABS: BASOPHILS PERCENT AUTO 0.2 % (0.0-1.0); EOSINOPHILS PERCENT AUTO 6.4 % (1.0-3.0); HEMATOCRIT 34.2 % (40.0-54.0); HEMOGLOBIN 12.9 g/dL (14.0-18.0); LYMPHOCYTES PERCENT AUTO 28.1 % (20.5-50.1); MEAN CORPUSCULAR HGB CONC 37.7 g/dL (33.0-35.0); MONOCYTES PERCENT AUTO 10.9 % (2-8); NEUTROPHILS PERCENT AUTO 54.4 % (42.2-75.2); PLATELET COUNT,PLT 156 10^3/uL (150-450); RED BLOOD CELL COUNT 3.49 10^6/uL (4.6-6.2); WHITE BLOOD CELL COUNT,WBC 5.6 10^3/uL (5.0-10.0)
[2023-07-22 05:41] LABS: INR 0.9 (0.9-1.2); PROTHROMBIN TIME 9.6 SEC (9.0-12.0)
[2023-07-22 05:42] LABS: LACTIC ACID 1.7 mmol/L (0.4-2.0)
[2023-07-22 05:48] LABS: ALANINE AMINOTRANSFERASE,ALT 14 U/L (16-63); ALBUMIN 3.4 g/dL (3.4-5.0); ALKALINE PHOSPHATASE 130 U/L (46-116); ANION GAP 13.9 mEq/L (7-13); ASPARTATE AMNIOTRANSFERASE,AST 10 U/L (15-37); BILIRUBIN TOTAL 0.4 mg/dL (0.2-1.0); BLOOD UREA NITROGEN,BUN 15 mg/dL (7-18); BUN/CREATININE RATIO 13.4 (No establ ref range); C-REACTIVE PROTEIN 0.09 ng/dL (<=0.30); CALCIUM 9.2 mg/dL (8.5-10.1); CARBON DIOXIDE,CO2 26 mmol/L (21-32); CHLORIDE,CL 105 mmol/L (98-107); CREATININE 1.12 mg/dL (0.70-1.30); ESTIMATED GFR 64 mL/min (>=60); ETHANOL BLOOD MEDICAL < 3 mg/dL (0); GLUCOSE RANDOM 119 mg/dL (70-99); POTASSIUM,K 3.9 mmol/L (3.5-5.1); PROTEIN TOTAL,TP 6.8 g/dL (6.4-8.2); SODIUM,NA 141 mmol/L (136-145); TSH ULTRASENSITIVE 25.81 uIU/mL (0.36-3.74)
[2023-07-22] MEDS ORDERED: Acetaminophen 500 MG Tab PO ONE (05:52)
[2023-07-22 06:08] LABS: APPEARANCE,URINE CLEAR (CLEAR); BILIRUBIN,URINE NEGATIVE (NEGATIVE); COLOR,URINE YELLOW (YELLOW); GLUCOSE,URINE NEGATIVE (NEGATIVE); KETONES,URINE NEGATIVE (NEGATIVE); LEUKOCYTE ESTERASE,URINE NEGATIVE (NEGATIVE); NITRITE,URINE NEGATIVE (NEGATIVE); OCCULT BLOOD,URINE NEGATIVE (NEGATIVE); PROTEIN,URINE NEGATIVE (NEGATIVE); UROBILINOGEN,URINE 0.2 mg/dL (0.2-1.0)
[2023-07-22 06:12] LABS: AMPHETAMINES,URINE NEGATIVE (NEGATIVE); BARBITURATES,URINE NEGATIVE (NEGATIVE); BENZODIAZEPINE,URINE NEGATIVE (NEGATIVE); MDMA (ECSTASY), URINE NEGATIVE (NEGATIVE); METHADONE,URINE NEGATIVE (NEGATIVE); METHAMPHETAMINES,URINE NEGATIVE (NEGATIVE); OPIATES,URINE NEGATIVE (NEGATIVE); OXYCODONE,URINE NEGATIVE (NEGATIVE); PHENCYCLIDINE,URINE NEGATIVE (NEGATIVE); TCA,URINE NEGATIVE (NEGATIVE)
[2023-07-22 06:15] LABS: CORONAVIRUS COVID-19 NAA NEGATIVE (NEGATIVE); INFLUENZA A NAA NEGATIVE (NEGATIVE); INFLUENZA B NAA NEGATIVE (NEGATIVE); RESPIRATORY SYNCYTIAL VIR NAA NEGATIVE (NEGATIVE)
== END 2023-07-22 06:58 ==
LOC: DL.ED 05:03
DX: R41.0 Disorientation, unspecified (principal); R29.702 NIHSS score 2; R94.6 Abnormal results of thyroid function studies; J44.9 Chronic obstructive pulmonary disease, unspecified; I25.10 Atherosclerotic heart disease of native coronary artery without angina pectoris; I48.91 Unspecified atrial fibrillation; E78.00 Pure hypercholesterolemia, unspecified; I10 Essential (primary) hypertension; E11.9 Type 2 diabetes mellitus without complications; E03.9 Hypothyroidism, unspecified; Z86.73 Personal history of transient ischemic attack (TIA), and cerebral infarction without residual deficits; Z20.822 Contact with and (suspected) exposure to COVID-19; Z88.8 Allergy status to other drugs, medicaments and biological substances; Z79.84 Long term (current) use of oral hypoglycemic drugs; Z79.899 Other long term (current) drug therapy
CPT/HCPCS: 0241U; 36415; 70450; 80053; 80305-QW; 80307; 81003; 82947; 83605; 84443; 84484; 85025; 85610; 85730; 86140; 93005; 93010; 99284; 99285; A9270-GY

== ENCOUNTER 2023-09-03 10:23 | Emergency (ER) | payer MEDICARE, OTHER | END 2023-09-03 11:50 | disposition left against medical advice (07) | LOC: DL.ED 10:23 | DX: Z53.21 Procedure and treatment not carried out due to patient leaving prior to being seen by health care provider (principal) ==

== ENCOUNTER 2023-09-15 19:47 | Emergency (ER) | payer MEDICARE, OTHER ==
[2023-09-15] MEDS ORDERED: Sodium Chloride 0.9% 10 ML Syringe FLUSH PRN (20:15)
[2023-09-15] MEDS ORDERED: Tenecteplase 50 MG Kit IVPUSH ONE (21:18)
[2023-09-15 23:00] LABS: APPEARANCE,URINE SLIGHTLY CLOUDY (CLEAR); COLOR,URINE YELLOW (YELLOW); PROTEIN,URINE NEGATIVE (NEGATIVE)
[2023-09-15 23:01] LABS: BILIRUBIN,URINE NEGATIVE (NEGATIVE); GLUCOSE,URINE NEGATIVE (NEGATIVE); KETONES,URINE NEGATIVE (NEGATIVE); LEUKOCYTE ESTERASE,URINE MODERATE (NEGATIVE); NITRITE,URINE NEGATIVE (NEGATIVE); OCCULT BLOOD,URINE TRACE-INTACT (NEGATIVE); UROBILINOGEN,URINE 0.2 mg/dL (0.2-1.0)
[2023-09-15] MEDS ORDERED: Acetaminophen 500 MG Tab PO ONE (23:05)
[2023-09-15 23:09] LABS: INR 0.9 (0.9-1.2); PROTHROMBIN TIME 9.3 SEC (9.0-12.0); PTT,PARTIAL THROMBOPLSTIN TIME 30.1 SEC (22.0-34.0)
[2023-09-15 23:11] LABS: BACTERIA,URINE MANY /HPF (0-FEW/HPF); EPITHELIAL CELLS,URINE FEW /HPF (NOT SEEN); RBC,URINE 0-5 /HPF (0-5); WBC,URINE >100 /HPF (0-5/HPF)
[2023-09-15 23:20] LABS: AMPHETAMINES,URINE NEGATIVE (NEGATIVE); BARBITURATES,URINE NEGATIVE (NEGATIVE); BENZODIAZEPINE,URINE NEGATIVE (NEGATIVE); MDMA (ECSTASY), URINE NEGATIVE (NEGATIVE); METHADONE,URINE NEGATIVE (NEGATIVE); METHAMPHETAMINES,URINE NEGATIVE (NEGATIVE); OPIATES,URINE NEGATIVE (NEGATIVE); OXYCODONE,URINE NEGATIVE (NEGATIVE); PHENCYCLIDINE,URINE NEGATIVE (NEGATIVE); TCA,URINE NEGATIVE (NEGATIVE)
[2023-09-15 23:21] LABS: BASOPHILS PERCENT AUTO 0.4 % (0.0-1.0); EOSINOPHILS PERCENT AUTO 3.6 % (1.0-3.0); HEMATOCRIT 35.5 % (40.0-54.0); HEMOGLOBIN 11.3 g/dL (14.0-18.0); LYMPHOCYTES PERCENT AUTO 19.6 % (20.5-50.1); MEAN CORPUSCULAR HEMOGLOBIN 30.6 pg (27.0-34.0); MEAN CORPUSCULAR HGB CONC 31.8 g/dL (33.0-35.0); MEAN CORPUSCULAR VOLUME 96.2 fL (80-100); MONOCYTES PERCENT AUTO 10.6 % (2-8); NEUTROPHILS PERCENT AUTO 65.8 % (42.2-75.2); PLATELET COUNT,PLT 189 10^3/uL (150-450); RED BLOOD CELL COUNT 3.69 10^6/uL (4.6-6.2)
[2023-09-15 23:22] LABS: A/G RATIO 0.97; ALBUMIN 3.4 g/dL (3.4-5.0); ANION GAP 11.9 mEq/L (7-13); BILIRUBIN TOTAL 0.4 mg/dL (0.2-1.0); BLOOD UREA NITROGEN,BUN 14 mg/dL (7-18); BUN/CREATININE RATIO 13.5 (No establ ref range); CALCIUM 8.8 mg/dL (8.5-10.1); CARBON DIOXIDE,CO2 25 mmol/L (21-32); CHLORIDE,CL 99 mmol/L (98-107); CREATININE 1.04 mg/dL (0.70-1.30); ESTIMATED GFR 69 mL/min (>=60); GLUCOSE RANDOM 135 mg/dL (70-99); POTASSIUM,K 4.1 mmol/L (3.5-5.1); PROTEIN TOTAL,TP 6.9 g/dL (6.4-8.2); SODIUM,NA 132 mmol/L (136-145)
[2023-09-15 23:23] LABS: ALANINE AMINOTRANSFERASE,ALT 14 U/L (16-63); ALKALINE PHOSPHATASE 151 U/L (46-116); ASPARTATE AMNIOTRANSFERASE,AST 11 U/L (15-37); C-REACTIVE PROTEIN 0.86 ng/dL (<=0.50); ETHANOL BLOOD MEDICAL 0 mg/dL (0)
== END 2023-09-15 23:15 ==
LOC: DL.ED 19:47
DX: I63.9 Cerebral infarction, unspecified (principal); I10 Essential (primary) hypertension; E78.00 Pure hypercholesterolemia, unspecified; I25.10 Atherosclerotic heart disease of native coronary artery without angina pectoris; I48.91 Unspecified atrial fibrillation; J44.9 Chronic obstructive pulmonary disease, unspecified; E11.9 Type 2 diabetes mellitus without complications; E03.9 Hypothyroidism, unspecified; Z86.16 Personal history of COVID-19; Z79.84 Long term (current) use of oral hypoglycemic drugs; Z79.899 Other long term (current) drug therapy; Z88.1 Allergy status to other antibiotic agents; Z88.8 Allergy status to other drugs, medicaments and biological substances; W18.09XA Striking against other object with subsequent fall, initial encounter
CPT/HCPCS: 36415; 37195; 70450; 72125; 80053; 80305; 80307; 81001; 82140; 84484; 85025; 85610; 85730; 86140; 87086; 99285; A9270; J3101; 87088; 87186; J3490

== ENCOUNTER 2025-01-02 03:11 | Emergency (ER) | payer MEDICARE, OTHER ==
[2025-01-02] MEDS: Ondansetron 4 MG/2 ML SDV IVPUSH ONE (03:31)
[2025-01-02] MEDS: Sodium Chloride 0.9% 1,000 ML IV ONE (03:31)
[2025-01-02] MEDS: Sodium Chloride 0.9% 10 ML Syringe FLUSH PRN (03:32)
[2025-01-02 03:35] LABS: BASOPHILS PERCENT AUTO 0.3 % (0.0-1.0); EOSINOPHILS PERCENT AUTO 3.7 % (1.0-3.0); HEMATOCRIT 31.8 % (40.0-54.0); HEMOGLOBIN 9.9 g/dL (14.0-18.0); MEAN CORPUSCULAR HGB CONC 31.1 g/dL (33.0-35.0); MEAN CORPUSCULAR VOLUME 99.7 fL (80-100); MONOCYTES PERCENT AUTO 8.2 % (2-8); NEUTROPHILS PERCENT AUTO 64.8 % (42.2-75.2); PLATELET COUNT,PLT 194 10^3/uL (150-450); RED BLOOD CELL COUNT 3.19 10^6/uL (4.6-6.2); WHITE BLOOD CELL COUNT,WBC 7.4 10^3/uL (5.0-10.0)
[2025-01-02 03:51] LABS: INR 0.9 (0.9-1.2); PROTHROMBIN TIME 9.7 SEC (9.0-12.0)
[2025-01-02 03:56] LABS: A/G RATIO 0.86; ALANINE AMINOTRANSFERASE,ALT 16 U/L (16-63); ALBUMIN 3.1 g/dL (3.4-5.0); ALKALINE PHOSPHATASE 174 U/L (46-116); ANION GAP 18.4 mEq/L (7-13); ASPARTATE AMNIOTRANSFERASE,AST 16 U/L (15-37); BILIRUBIN TOTAL 0.3 mg/dL (0.2-1.0); BLOOD UREA NITROGEN,BUN 15 mg/dL (7-18); BUN/CREATININE RATIO 14.6 (No establ ref range); CALCIUM 8.8 mg/dL (8.5-10.1); CARBON DIOXIDE,CO2 23 mmol/L (21-32); CHLORIDE,CL 104 mmol/L (98-107); CREATININE 1.03 mg/dL (0.70-1.30); ESTIMATED GFR 70 mL/min (>=60); GLUCOSE RANDOM 104 mg/dL (70-99); POTASSIUM,K 4.4 mmol/L (3.5-5.1); PROTEIN TOTAL,TP 6.7 g/dL (6.4-8.2); SODIUM,NA 141 mmol/L (136-145)
[2025-01-02] MEDS: Iopamidol 755 Mg/ML 100 ML Bottle IVPUSH ONE (04:16)
== END 2025-01-02 05:45 | disposition home or self-care (01) ==
LOC: DL.ED 03:11
DX: R42 Dizziness and giddiness (principal); K44.9 Diaphragmatic hernia without obstruction or gangrene; I10 Essential (primary) hypertension; I25.10 Atherosclerotic heart disease of native coronary artery without angina pectoris; E78.00 Pure hypercholesterolemia, unspecified; E03.9 Hypothyroidism, unspecified; E11.9 Type 2 diabetes mellitus without complications; J45.909 Unspecified asthma, uncomplicated; Z88.8 Allergy status to other drugs, medicaments and biological substances; Z79.899 Other long term (current) drug therapy; Z79.890 Hormone replacement therapy; Z86.16 Personal history of COVID-19
CPT/HCPCS: 36415; 70496; 70498; 71260; 80053; 85025; 85610; 93005; 96374; 99284; J2405; J7030; Q9967; 93010